=== PATIENT | female | born 1945 | race Caucasian/White ===

== ENCOUNTER → 2022-03-04 11:35 | Outpatient (CLI) | payer MEDICARE, SELFPAY ==
[2022-03-04 13:01] LABS: Add Manual Diff / Slide Review NO; Basophils Absolute Auto 100 /uL (0-100); Eosinophils Absolute Auto 200 /uL (0-450); Eosinophils Percent Auto 3.1 % (2-4); Hematocrit 37.9 % (36-46); Hemoglobin 12.8 g/dL (12.0-16.0); Lymphocytes Absolute Auto 1400 /uL (1100-4500); Mean Corpuscular HGB Conc 33.7 % (30-36); Mean Corpuscular Hemoglobin 30.7 PG (26-34); Monocytes Absolute Auto 500 /uL (0-900); Monocytes Percent Auto 8.5 % (3-14); Neutrophils Absolute Auto 4200 /uL (1500-7000); Neutrophils Percent Auto 65.4 % (50-75); Platelet Count 242 X10^3/uL (150-400); Red Blood Cell Count 4.16 X10^6/uL (4.0-5.2); Red Cell Distribution Width 13.5 % (11.6-14.8); White Blood Cell Count 6.4 X10^3/uL (4.5-11.0)
[2022-03-04 13:12] LABS: Alanine Aminotransferase 33 IU/L (<35); Albumin 4.4 g/dL (3.5-5.0); Albumin Globulin Ratio 1.5 (1.0-2.8); Alkaline Phosphatase 75 U/L (38-126); Aspartate Aminotransferase 35 IU/L (14-36); BUN Creatinine Ratio 29.4 (6-22); Bilirubin Total 0.3 mg/dL (0.2-1.3); Blood Urea Nitrogen 20 mg/dL (7-17); Calcium 9.1 mg/dL (8.4-10.2); Carbon Dioxide 25 mmol/L (22-32); Chloride 105 mmol/L (98-107); Cholesterol 190 mg/dL (140-199); Estimated Glomerular Filt Rate > 60 mL/min (>60); Globulin 2.9 g/dL (1.7-4.1); Glucose 109 mg/dL (80-110); HDL Cholesterol 44 mg/dL (40-60); HEMOLYSIS < 15 (0-50); LDL Cholesterol Calculated 128 mg/dL (<100); Potassium 4.6 mmol/L (3.4-5.1); Sodium 140 mmol/L (137-145); Total Protein 7.3 g/dL (6.3-8.2); Triglycerides 89 mg/dL (35-150)
[2022-03-04 13:29] LABS: T4 Total Thyroxine 7.57 ug/dL (5.5-11.0)
[2022-03-04 13:43] LABS: Thyroid Stimulating Hormone 3.51 uIU/mL (0.47-4.68)
[2022-03-05 05:43] LABS: Triiodothyronine T3 Total 112 ng/dL (71-180)
[2022-03-05 08:04] LABS: Insulin Level Total 10.7 uIU/mL (2.6-24.9)
[2022-03-06 14:11] LABS: Estradiol 11.3 pg/mL (.); Estriol,Serum <0.1 ng/mL (.); Estrone,Serum 95 pg/mL (0-125)
[2022-03-06 19:36] LABS: SARS CoV19 IgA Negative (Negative)
[2022-03-08 16:28] LABS: Percent Free Testosterone 2.38 % (0.50-2.80); Testosterone Free 0.11 ng/dL (0.10-0.85); Testosterone Total 4.6 ng/dL (7.0-40.0)
== END ==
DX: E03.9 Hypothyroidism, unspecified (principal); N95.1 Menopausal and female climacteric states; Z13.9 Encounter for screening, unspecified; N07.1 Hereditary nephropathy, not elsewhere classified with focal and segmental glomerular lesions; E78.2 Mixed hyperlipidemia; R79.89 Other specified abnormal findings of blood chemistry
CPT/HCPCS: 80053; 80061; 82542; 82670; 82677; 82679; 83525; 84144; 84402; 84403; 84436; 84443; 84480; 85025; 86769

== ENCOUNTER 2022-06-24 12:08 | Emergency (ER) | payer MEDICARE, SELFPAY ==
[2022-06-24 12:26] VITALS: BP 124/57; PULSE 61; RESP 17; TEMP 36.6; O2SAT 98; BMI 22.4
[2022-06-24 13:16] VITALS: BP 106/62; PULSE 62; RESP 16; O2SAT 99
--- NOTE | 2022-06-24 13:51 | ED.NECK ---
HPI - Neck Pain/Injury General Chief Complaint: Neck Pain/Injury Stated Complaint: Neck pain shoulder pain and hip pain left & rt Time Seen by Provider: 06/24/22 13:01 Mode of arrival: Ambulatory History of Present Illness HPI Narrative: Patient is held a 76-year-old female who presents with left-sided neck pain for the last 4 days. She says she wanted to surprise her when he came home with some landscaping and water fall feature. She says she did quite a bit a work in the next day woke up sore. Usually she can rest and gets better however this is not getting better it is keeping her awake at night. She says now it is going all way down to her hip. She has no weakness. She did not fall. She has been taking Tylenol and ibuprofen with minimal relief. Related Data Home Medications Medication Instructions Recorded Confirmed brimonidine 0.2 %-timolol 0.5 % drp 06/24/22 eye drops (Combigan) esterified tab 06/24/22 estrogens-methyltestosterone 0.625 mg-1.25 mg tablet Previous Rx's Medication Instructions Recorded cyclobenzaprine 5 mg tablet 5 mg PO TID PRN muscle spasm #10 06/24/22 tabs hydrocodone 5 mg-acetaminophen 325 1 tab PO Q6H PRN pain #10 tabs 06/24/22 mg tablet Review of Systems Review of Systems Narrative: GENERAL: Denies chills,fever HEENT: Denies throat pain RESPIRATORY: Denies dyspnea, cough, wheezing CARDIOVASCULAR: Denies chest pain, palpitations GASTROINTESTINAL: Denies nausea, vomiting MUSCULOSKELETAL: See HPI SKIN: No rash, no laceration, no pruritus NEUROLOGIC: Denies weakness, dizziness, headache, numbness 8 point review of systems is negative except for those stated above and HPI Patient History Social History Smoking Status: Never smoker Smoking Status: Never smoker alcohol intake frequency: holidays/special occasions only Substance Use Type: does not use Exam Initial Vital Signs Initial Vital Signs: Vital Signs Temperature 98 F 06/24/22 12:26 Pulse Rate 61 06/24/22 12:26 Respiratory Rate 17 06/24/22 12:26 Blood Pressure 124/57 L 06/24/22 12:26 Pulse Oximetry 98 09/13/22 12:26 Oxygen Delivery Method 06/24/22 12:26 GENERAL: Pleasant alert 76-year-old female appears younger than stated NECK: No vertebral tenderness no step-off significant muscle spasm on the left side. Tender to palpation CARDIOVASCULAR: peripheral pulses in tact, cap refill <2 sec RESPIRATORY: No respiratory distress, speaks in full sentences without difficulty EXTREMITIES: Normal range of motion, no clubbing or edema. Neurovascularly intact NEUROLOGICAL: Cranial nerves II through XII grossly intact. Normal gait and speech. SKIN: Warm, dry, no petechiae, no rashes or lesions. Course Orders Ordered: Discontinued Medications Ketorolac Tromethamine (Ketorolac 30 Mg/Ml Vial) 30 mg IM NOW ONE Stop: 06/24/22 14:00 Last Admin: 06/24/22 14:09 Dose: 30 mg Documented By: JEETK Vital Signs Vital signs: Vital Signs - 8 hr 06/24/22 12:26 06/24/22 13:16 Temperature 98 F Pulse Rate 61 62 Respiratory Rate 17 16 Blood Pressure 124/57 L 106/62 Pulse Oximetry 98 99 Oxygen Delivery Method Room Air Room Air MDM - Neck Pain/Injury MDM Narrative Medical decision making narrative: Has significant muscle spasm on the left it is reproducible with palpation. No need for imaging at this time. She has not had any fall she is nontender over her vertebrae. Minimal improvement with pain medication here. Will send her home with more Discharge Plan Departure Patient Disposition: Home Clinical Impression: Strain of neck muscle Instructions: Neck Sprain Activity Restrictions/Additional Instructions: *You have been diagnosed with cervical strain *What to do: At this time recommend light stretching heating pad. LIGHT activity no strenuous activity no heavy lifting *Continue to take medications as directed--> SENT TO [facility] [place] Ibuprofen 600 mg every 6 hours if needed for [id number] pain [place] 1 tablet every 6 hours if needed for severe pain Flexeril 5 mg every 8 hours as needed for muscle spasm *Follow up with your primary care provider in 2-3 days or call [phone] *Return to ER if you should have increasing pain, weakness numbness tingling or any new, worsening or concerning symptoms CONTROLLED SUBSTANCE DISCHARGE (Narcotoic/benzodiazepine/Flexeril/Phenergan) 1. You have been prescribed narcotic medications, it does have acetaminophen/Tylenol/paracetamol in it, DO NOT TAKE MORE THAN 4,00mg in 24 hours of Tylenol. TRAMADOL DOES NOT CONTAIN TYLENOL 2. Please understand that we cannot provide further refills of narcotics, benzodiazepines or controlled substances through the ED and her pain management will need to be through your provider. 3. While on these medications you cannot drive or operate heavy machinery. 4. You cannot sign legal documents or perform any duties such as this. 5. As long as you're taking opiate pain medications he should also be taking a stool softener such as Colace, Dulcolax, MiraLAX or prune juice, to help avoid constipation. Prescriptions: New hydrocodone-acetaminophen 5-325 mg tablet 1 tab PO Q6H PRN (Reason: pain) Qty: 10 0RF cyclobenzaprine 5 mg tablet 5 mg PO TID PRN (Reason: muscle spasm) Qty: 10 0RF No Action estrogens-methyltestosterone 0.625-1.25 mg tablet Label Comments: TAKE 1 TABLET BY MOUTH EVERY DAY brimonidine-timolol [Combigan] 0.2-0.5 % drops Referrals: Hanane Luis ARNP [Primary Care Provider] - Visit Report Forms: Patient Portal/API
[2022-06-24] MEDS: KETOROLAC 30 MG/ML VIAL IM (14:09)
== END 2022-06-24 14:51 | disposition home or self-care (01) ==
PROVIDERS: Emergency Provider Emergency Medicine
DX: S16.1XXA Strain of muscle, fascia and tendon at neck level, initial encounter (principal)
CPT/HCPCS: 96372; 99283; J1885

== ENCOUNTER → 2022-10-21 09:59 | Outpatient (CLI) | payer MEDICARE, SELFPAY ==
--- NOTE | 2022-10-21 10:00 | DI.RAD.S_ITS ---
PROCEDURE: XR FOOT RT MIN 3V INDICATIONS: Right foot injury TECHNIQUE: 3 views of the foot were acquired. COMPARISON: None. FINDINGS: Mildly displaced and distracted fracture through the right 5th metatarsal base. No additional fracture. 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 IMPRESSION: Mildly displaced and distracted right 5th metatarsal base fracture. Dictated by: Thad Mike M.D. on 10/21/2022 at 11:12 Approved by: Thad Mike M.D. on 10/21/2022 at 11:13
== END ==
PROVIDERS: Referring Provider Registered Nurse; Visit Provider Registered Nurse
DX: S92.351A Displaced fracture of fifth metatarsal bone, right foot, initial encounter for closed fracture (principal); M19.071 Primary osteoarthritis, right ankle and foot; M20.11 Hallux valgus (acquired), right foot; M79.671 Pain in right foot
CPT/HCPCS: 73630

== ENCOUNTER 2023-05-18 10:13 | Observation (INO) | payer MEDICARE, SELFPAY ==
[2023-05-18] VITALS (19 sets, daily range): BP systolic 106–182; BP diastolic 52–74; PULSE 48–66; RESP 12–22; TEMP 36.3–36.8; O2SAT 86–100; BMI 23.3
--- NOTE | 2023-05-18 | DI.MRI.S_ITS ---
PROCEDURE: MR HEAD/BRAIN WO CON INDICATIONS: possible CVA TECHNIQUE: Non-contrast axial T1 spin echo, axial T2 fast spin echo, sagittal and axial FLAIR, coronal T2 fast spin echo, axial gradient echo, axial diffusion and ADC through the brain. COMPARISON: [facility], CT, CT ANGIO HEAD AND NECK, 05/18/2023, 13:20. FINDINGS: Image quality: Excellent. CSF spaces: Ventricles appear symmetric in size and shape. Basal cisterns are patent. No extra-axial fluid collections. Brain: No intracranial bleeds or mass effects. There is cerebral volume loss for age. There are periventricular and deep white matter chronic small vessel ischemic changes. Brainstem appears normal. Diffusion-weighted images show no acute ischemic insults. No chronic ischemic insults. Normal intravascular flow voids are present. Skull and face: Calvarial bone marrow is normal in signal. Bilateral lens replacements. Otherwise, the orbits are unremarkable. Sinuses: Small right maxillary sinus mucous retention cyst. Sinuses and mastoids are otherwise clear. IMPRESSION: 1. No acute or subacute infarct. No acute intracranial hemorrhage. 2. Age-related volume loss and chronic microvascular ischemic change. Dictated by: Stan Gonsales M.D. on 05/18/2023 at 16:13 Approved by: Stan Gonsales M.D. on 05/18/2023 at 16:16
--- NOTE | 2023-05-18 10:29 | DI.RAD.S_ITS ---
PROCEDURE: XR CHEST 1V INDICATIONS: chest pain/syncope TECHNIQUE: One view of the chest was acquired. COMPARISON: None. FINDINGS: Surgical changes and devices: None. Lungs and pleura: Lungs are clear. No pleural effusions or pneumothorax. Mediastinum: Mediastinal contours appear normal. Heart size is normal. Bones and chest wall: No suspicious bony lesions. Overlying soft tissues appear unremarkable. IMPRESSION: No acute cardiopulmonary abnormalities or focal airspace disease. Dictated by: Yves Brewer M.D. on 05/18/2023 at 11:13 Approved by: Yves Brewer M.D. on 05/18/2023 at 11:13
[2023-05-18 10:35] LABS: Add Manual Diff / Slide Review NO; Basophils Absolute Auto 0 /uL (0-100); Basophils Percent Auto 0.4 % (0-2); Eosinophils Absolute Auto 200 /uL (0-450); Eosinophils Percent Auto 2.5 % (2-4); Hematocrit 39.8 % (36-46); Hemoglobin 13.4 g/dL (12.0-16.0); Lymphocytes Absolute Auto 1000 /uL (1100-4500); Lymphocytes Percent Auto 10.1 % (25-40); Mean Corpuscular HGB Conc 33.6 % (30-36); Mean Corpuscular Hemoglobin 31.1 PG (26-34); Mean Corpuscular Volume 92.5 fL (80-100); Monocytes Absolute Auto 600 /uL (0-900); Monocytes Percent Auto 6.8 % (3-14); Neutrophils Absolute Auto 7600 /uL (1500-7000); Neutrophils Percent Auto 80.2 % (50-75); Platelet Count 231 X10^3/uL (150-400); Red Cell Distribution Width 13.5 % (11.6-14.8); White Blood Cell Count 9.5 X10^3/uL (4.5-11.0)
[2023-05-18 10:41] LABS: Prothrombin Time 11.1 SECONDS (10.1-12.7)
[2023-05-18 10:44] LABS: PTT Partial Thromboplastin Tim 28 SECONDS (26-36)
[2023-05-18 10:45] LABS: Alanine Aminotransferase 30 IU/L (<35); Albumin 4.2 g/dL (3.5-5.0); Albumin Globulin Ratio 1.4 (1.0-2.8); Alkaline Phosphatase 71 U/L (38-126); Aspartate Aminotransferase 36 IU/L (14-36); BUN Creatinine Ratio 34.5 (6-22); Bilirubin Total 0.4 mg/dL (0.2-1.3); Blood Urea Nitrogen 20 mg/dL (7-17); Calcium 9.3 mg/dL (8.4-10.2); Carbon Dioxide 28 mmol/L (22-32); Chloride 105 mmol/L (98-107); Creatine Kinase 64 U/L (30-135); Estimated Glomerular Filt Rate > 60 mL/min (>60); Globulin 2.9 g/dL (1.7-4.1); Glucose 122 mg/dL (80-110); HEMOLYSIS < 15 (0-50); Lipase 63 U/L (23-300); Potassium 4.4 mmol/L (3.4-5.1); Sodium 138 mmol/L (137-145); Total Protein 7.1 g/dL (6.3-8.2)
[2023-05-18 10:57] LABS: NT-proBNP (BNP-Adult 18+) 128 pg/mL (<450); Troponin I < 0.012 ng/mL (0.01-0.034)
[2023-05-18] MEDS: SODIUM CHLORIDE 0.9% 1,000 ML 1000 ML IV (11:11)
--- NOTE | 2023-05-18 12:04 | ED_ITS ---
HPI - Syncope General Chief Complaint: Syncope Stated Complaint: Syncope Chest Pressure Time Seen by Provider: 05/18/23 10:29 Source: patient and EMS Mode of arrival: EMS Limitations: no limitations History of Present Illness HPI narrative: This is a 77-year-old female with history of glaucoma, chronic leg cramps and on estradiol daily. Patient states last night she noticed some left upper and lower extremity numbness and tingling she states this morning she woke up the room was spinning like the whole stealing was moving it is not quite as intense now but is still present any time she moves at all. She also noticed that she would a little change to her left eye vision like blocks and a sort of crescent shape that were izaguirre that has since resolved. She denies headache. She denies any active vision changes currently. She has little bit of chest pressure, no shortness of breath. Still feels tingling in her left upper extremity noted her left toes felt numb and tingling like she was stepping on something even though she was not. She noted onset around 0 last night. She is had some nausea but no vomiting today. No issues with bowel movements or urination. She does not appreciate any weakness. She states that she fell in the kitchen and sort of grade out for several seconds. She states it also happened a 2nd time again when she was walking to their sports room. She feels a little lightheaded when she sits up. She has medications including estradiol and tablet form for hormone replacement, eyedrops for glaucoma, quinidine PRN for leg cramps and nausea medication. She is had prior hysterectomy, hernia and eye surgery as well as 1 tonsil removed. No known drug allergies. No tobacco, occasional alcohol none recently, she tried THC a couple days ago but otherwise does not use regularly. No other illicit. Related Data Home Medications Medication Instructions Recorded Confirmed brimonidine 0.2 %-timolol 0.5 % 1 drp EYE-BOTH BID 06/24/22 05/18/23 eye drops (Combigan) esterified 1 tab PO DAILY 06/24/22 05/18/23 estrogens-methyltestosterone 0.625 mg-1.25 mg tablet quinine sulfate 324 mg capsule 324 mg PO ONCE PM PRN cramps 05/18/23 05/18/23 Previous Rx's Medication Instructions Recorded cyclobenzaprine 5 mg tablet 5 mg PO TID PRN muscle spasm #10 06/24/22 tabs hydrocodone 5 mg-acetaminophen 325 1 tab PO Q6H PRN pain #10 tabs 06/24/22 mg tablet Allergies Allergy/AdvReac Type Severity Reaction Status Date / Time No Known Drug Allergies Allergy Verified 05/18/23 10:39 Review of Systems Review of Systems ROS Unobtainable: All systems reviewed & are unremarkable except as noted in HPI and below Patient History Medical History (Updated 05/18/23 @ 18:19 by Jeff Mejia DO) Glaucoma Surgical History (Updated 05/18/23 @ 18:19 by Jeff Mejia DO) H/O: hysterectomy Social History household members: spouse Smoking Status: Never smoker alcohol intake: current Smoking Status: Never smoker alcohol intake frequency: holidays/special occasions only Substance Use Type: does not use Exam Narrative Exam Narrative: GEN: well nourished, well appearing female, alert and oriented x 3, patient appears to be in mild distress. HEENT: Atraumatic, pupils are equal round reactive to light, extraocular movements are intact, nares are clear, TMs are clear with no fluid, there is no conjunctival pallor. Throat is clear without any exudates, erythema, tonsillar enlargement or uvular deviation, no facial droop HEART: Regular rate and rhythm without murmur, clicks, rubs. pulses are equal in upper and lower extremities LUNGS:Lungs clear to auscultation, no wheezes, rales, crackles, chest moves symmetrically ABD:bowel sounds normal, soft, non-tender, no guarding, rebound, rigidity, no masses noted, no hepatosplenomegaly :No CVA tenderness MSCL: Non-tender, no muscle atrophy, muscles strength 5/5 upper and lower extremities, full range of motion, gait slightly unsteady but can ambulate unasssited. NEURO:CN 2-12 intact, sensation normal, Finger nose finger test normal, heel bond test normal, romberg normal SKIN: Initial Vital Signs Initial Vital Signs: Vital Signs Temperature 97.9 F 05/18/23 10:15 Pulse Rate 60 05/18/23 10:15 Respiratory Rate 16 05/18/23 10:15 Blood Pressure 132/63 05/18/23 10:15 Pulse Oximetry 98 05/18/23 10:15 Oxygen Delivery Method Room Air 05/18/23 10:15 Course Orders Ordered: ED Orders 05/18/23 10:20 Complete Blood Count AUTO DIFF Stat Comprehensive Metabolic Panel Stat Lipase Stat NT-proBNP (BNP-Adult 18+) Stat PTT Partial Thromboplastin Crow Stat Prothrombin Time INR Stat Troponin & CK Cardiac Panel Stat 05/18/23 10:23 EKG-12 Lead Routine 05/18/23 10:29 XR chest 1V Stat EKG-12 Lead Stat 05/18/23 12:20 EKG-12 Lead Stat 05/18/23 12:23 MAG [Magnesium] Stat Trop I [Troponin I] Stat 05/18/23 12:57 CT angio head and neck Stat CT head/brain wo con Stat 05/18/23 15:54 Consult to Occupational Therapy Evaluate & Treat Consult to Physical Therapy Evaluate & Treat 05/19/23 05:00 Basic Metabolic Panel DAILY Complete Blood Count AUTO DIFF DAILY Hemoglobin A1C% w Est Avg Glu Routine Lipid Panel Routine Magnesium DAILY TSH w/ Reflex to FT4 Routine 05/20/23 05:00 Basic Metabolic Panel DAILY Complete Blood Count AUTO DIFF DAILY Magnesium DAILY 05/21/23 05:00 Basic Metabolic Panel DAILY Complete Blood Count AUTO DIFF DAILY Magnesium DAILY Acetaminophen (Acetaminophen 325 Mg Tablet) 650 mg PO Q6H PRN PRN Reason: Fever/Mild Pain (1-3) Aspirin (Aspirin Ec 81 Mg Tablet) 81 mg PO DAILY [facility] Atorvastatin Calcium (Atorvastatin 20 Mg Tablet) 40 mg PO BEDTIME [facility] Enoxaparin Sodium (Enoxaparin 40 Mg/0.4 Ml Syringe) 40 mg SUBCUT DAILY [facility] Lorazepam (Lorazepam 2 Mg/Ml Inj) 0.5 mg IV Q6HR PRN PRN Reason: vertigo Meclizine HCl (Meclizine Hcl 12.5 Mg Tablet) 25 mg PO Q6HR ANTONIO Naloxone HCl (Naloxone 0.4 Mg/Ml Vial) 0.2 mg IV Q2MIN PRN PRN Reason: Opiate Reversal Ondansetron HCl (Ondansetron 4 Mg/2 Ml Inj) 4 mg IV Q8HR PRN PRN Reason: Nausea And Vomiting Discontinued Medications Aspirin (Aspirin 81 Mg Chew Tab) 324 mg PO NOW ONE Stop: 05/18/23 10:30 Last Admin: 05/18/23 10:39 Dose: Not Given Documented By: AMV Sodium Chloride (Normal Saline 0.9%) 1,000 mls @ 1,000 mls/hr IV BOLUS ONE Stop: 05/18/23 11:28 Last Infusion: 05/18/23 12:29 Dose: 0 mls/hr Documented By: Admin: 05/18/23 11:11 Dose: 1,000 mls/hr Documented By: DAVID Lorazepam (Lorazepam 2 Mg/Ml Inj) 0.5 mg IV NOW ONE Stop: 05/18/23 14:46 Last Admin: 05/18/23 15:03 Dose: Not Given Documented By: DAVID Lorazepam (Lorazepam 2 Mg/Ml Inj) 0.5 mg IV NOW ONE Stop: 05/18/23 15:55 Last Admin: 05/18/23 17:27 Dose: Not Given Documented By: DEBBY Meclizine HCl (Meclizine Hcl 12.5 Mg Tablet) 50 mg PO NOW ONE Stop: 05/18/23 13:21 Last Admin: 05/18/23 13:35 Dose: 50 mg Documented By: [facility] Vital Signs Vital signs: Vital Signs - 8 hr 05/18/23 11:30 05/18/23 11:30 05/18/23 11:49 Pulse Rate 51 L 52 L Pulse Rate [Orthostatic Lying] Pulse Rate [Orthostatic Sitting] Pulse Rate [Orthostatic Standing] Respiratory Rate 15 16 Blood Pressure 110/59 L Blood Pressure [Orthostatic Lying] Blood Pressure [Orthostatic Sitting] Blood Pressure [Orthostatic Standing] Pulse Oximetry 98 97 05/18/23 11:49 05/18/23 12:00 05/18/23 12:00 Pulse Rate 48 L Pulse Rate [Orthostatic Lying] Pulse Rate [Orthostatic Sitting] Pulse Rate [Orthostatic Standing] Respiratory Rate 16 Blood Pressure 138/60 117/56 L Blood Pressure [Orthostatic Lying] Blood Pressure [Orthostatic Sitting] Blood Pressure [Orthostatic Standing] Pulse Oximetry 99 05/18/23 12:24 05/18/23 12:24 05/18/23 12:48 Pulse Rate 52 L Pulse Rate [Orthostatic Lying] 51 L Pulse Rate [Orthostatic Sitting] 56 L Pulse Rate [Orthostatic Standing] 53 L Respiratory Rate 16 Blood Pressure 127/59 L Blood Pressure [Orthostatic Lying] 127/59 L Blood Pressure [Orthostatic Sitting] 137/62 Blood Pressure [Orthostatic Standing] 139/60 Pulse Oximetry 98 05/18/23 12:30 05/18/23 12:44 05/18/23 12:44 Pulse Rate 51 L 55 L Pulse Rate [Orthostatic Lying] Pulse Rate [Orthostatic Sitting] Pulse Rate [Orthostatic Standing] Respiratory Rate 15 12 Blood Pressure 137/62 Blood Pressure [Orthostatic Lying] Blood Pressure [Orthostatic Sitting] Blood Pressure [Orthostatic Standing] Pulse Oximetry 98 98 05/18/23 12:45 05/18/23 12:45 05/18/23 13:05 Pulse Rate 53 L Pulse Rate [Orthostatic Lying] Pulse Rate [Orthostatic Sitting] Pulse Rate [Orthostatic Standing] Respiratory Rate Blood Pressure 139/60 Blood Pressure [Orthostatic Lying] Blood Pressure [Orthostatic Sitting] Blood Pressure [Orthostatic Standing] Pulse Oximetry 98 86 L 05/18/23 13:06 05/18/23 13:06 05/18/23 13:30 Pulse Rate 51 L 52 L Pulse Rate [Orthostatic Lying] Pulse Rate [Orthostatic Sitting] Pulse Rate [Orthostatic Standing] Respiratory Rate 15 Blood Pressure 139/65 Blood Pressure [Orthostatic Lying] Blood Pressure [Orthostatic Sitting] Blood Pressure [Orthostatic Standing] Pulse Oximetry 97 98 05/18/23 14:00 05/18/23 14:26 05/18/23 14:26 Pulse Rate 52 L 50 L Pulse Rate [Orthostatic Lying] Pulse Rate [Orthostatic Sitting] Pulse Rate [Orthostatic Standing] Respiratory Rate Blood Pressure 149/66 H Blood Pressure [Orthostatic Lying] Blood Pressure [Orthostatic Sitting] Blood Pressure [Orthostatic Standing] Pulse Oximetry 98 98 05/18/23 14:26 05/18/23 14:30 Pulse Rate 51 L Pulse Rate [Orthostatic Lying] Pulse Rate [Orthostatic Sitting] Pulse Rate [Orthostatic Standing] Respiratory Rate Blood Pressure 149/66 H Blood Pressure [Orthostatic Lying] Blood Pressure [Orthostatic Sitting] Blood Pressure [Orthostatic Standing] Pulse Oximetry 99 MDM - Syncope Lab Data 05/18/23 10:20 05/18/23 10:20 Labs: Lab Results 05/18/23 05/18/23 05/18/23 Range/Units 10:20 10:20 10:20 WBC 9.5 (4.5-11.0) X10^3/uL RBC 4.30 (4.0-5.2) X10^6/uL Hgb 13.4 (12.0-16.0) g/dL Hct 39.8 (36-46) % MCV 92.5 (80-100) fL MCH 31.1 (26-34) PG MCHC 33.6 (30-36) % RDW 13.5 (11.6-14.8) % Plt Count 231 (150-400) X10^3/uL Neut % (Auto) 80.2 H (50-75) % Lymph % (Auto) 10.1 L (25-40) % [place] % (Auto) 6.8 (3-14) % Eos % (Auto) 2.5 (2-4) % Baso % (Auto) 0.4 (0-2) % Neut # (Auto) 7600 H (6029-3862) /uL Lymph # (Auto) 1000 L (2998-7220) /uL [place] # (Auto) 600 (0-900) /uL Eos # (Auto) 200 (0-450) /uL Baso # (Auto) 0 (0-100) /uL PT 11.1 (10.1-12.7) SECONDS INR 1.0 (0.9-1.3) APTT 28 (26-36) SECONDS Sodium 138 (137-145) mmol/L Potassium 4.4 (3.4-5.1) mmol/L Chloride 105 (98-107) mmol/L Carbon Dioxide 28 (22-32) mmol/L BUN 20 H (7-17) mg/dL Creatinine 0.58 (0.52-1.04) mg/dL Estimated GFR > 60 (>60) mL/min BUN/Creatinine Ratio 34.5 H (6-22) Glucose 122 H (80-110) mg/dL Calcium 9.3 (8.4-10.2) mg/dL Magnesium (1.6-2.3) mg/dL Total Bilirubin 0.4 (0.2-1.3) mg/dL AST 36 (14-36) IU/L ALT 30 (<35) IU/L Alkaline Phosphatase 71 (38-126) U/L Total Creatine Kinase 64 (30-135) U/L Troponin I < 0.012 (0.01-0.034) ng/mL NT-Pro-B Natriuret Pep 128 (<450) pg/mL Total Protein 7.1 (6.3-8.2) g/dL Albumin 4.2 (3.5-5.0) g/dL Globulin 2.9 (1.7-4.1) g/dL Albumin/Globulin Ratio 1.4 (1.0-2.8) Lipase 63 (23-300) U/L 05/18/23 Range/Units 12:23 WBC (4.5-11.0) X10^3/uL RBC (4.0-5.2) X10^6/uL Hgb (12.0-16.0) g/dL Hct (36-46) % MCV (80-100) fL MCH (26-34) PG MCHC (30-36) % RDW (11.6-14.8) % Plt Count (150-400) X10^3/uL Neut % (Auto) (50-75) % Lymph % (Auto) (25-40) % [place] % (Auto) (3-14) % Eos % (Auto) (2-4) % Baso % (Auto) (0-2) % Neut # (Auto) (7397-4565) /uL Lymph # (Auto) (0239-2440) /uL [place] # (Auto) (0-900) /uL Eos # (Auto) (0-450) /uL Baso # (Auto) (0-100) /uL PT (10.1-12.7) SECONDS INR (0.9-1.3) APTT (26-36) SECONDS Sodium (137-145) mmol/L Potassium (3.4-5.1) mmol/L Chloride (98-107) mmol/L Carbon Dioxide (22-32) mmol/L BUN (7-17) mg/dL Creatinine (0.52-1.04) mg/dL Estimated GFR (>60) mL/min BUN/Creatinine Ratio (6-22) Glucose (80-110) mg/dL Calcium (8.4-10.2) mg/dL Magnesium 2.1 (1.6-2.3) mg/dL Total Bilirubin (0.2-1.3) mg/dL AST (14-36) IU/L ALT (<35) IU/L Alkaline Phosphatase (38-126) U/L Total Creatine Kinase (30-135) U/L Troponin I < 0.012 (0.01-0.034) ng/mL NT-Pro-B Natriuret Pep (<450) pg/mL Total Protein (6.3-8.2) g/dL Albumin (3.5-5.0) g/dL Globulin (1.7-4.1) g/dL Albumin/Globulin Ratio (1.0-2.8) Lipase (23-300) U/L Point of Care Testing Glucose POC 118 Urine Dip Bedside Urine Glucose Negative Bedside Urine Bilirubin - Negative Bedside Urine Ketone - Negative Urine Specific [place] 1.015 Bedside Urine Occult Blood +/- Bedside Urine pH 6.0 Bedside Urine Protein - Negative Bedside Urine Urobilinogen - Negative Bedside Urine Nitrite - Negative Bedside Urine Leukocytes - Negative Esterase Imaging Data Chest x-ray: Radiologist's Impression: [address] [address] XRay Report Signed Patient: Tor Samuel V MR#: [id number] : 1945 Acct:[id number] Age/Sex: 77 / F Date of Service: 05/18/23 Loc: ED Accession Number: [id number] ?? Procedure: XR chest 1V Ordering Provider: Shannon Ventura D.O. PROCEDURE:? XR CHEST 1V ? INDICATIONS:? chest pain/syncope ? TECHNIQUE:? One view of the chest was acquired.? ? COMPARISON:? None. ? FINDINGS:? ? Surgical changes and devices:? None.? ? Lungs and pleura:? Lungs are clear.? No pleural effusions or pneumothorax.? ? Mediastinum:? Mediastinal contours appear normal.? Heart size is normal.? ? Bones and chest wall:? No suspicious bony lesions.? Overlying soft tissues appear unremarkable.? ? IMPRESSION:? No acute cardiopulmonary abnormalities or focal airspace disease. ? Dictated by: Yves Brewer M.D. on 05/18/2023 at 11:13 ? ? Approved by: Yves Brewer M.D. on 05/18/2023 at 11:13?? ECG Data Attestation: I personally reviewed and interpreted this ECG as follows: Interpretation: Sinus bradycardia rate of 55, IN 152 QRS is 76 and QTC 390. No acute ST elevation depression noted. MDM Narrative Medical decision making narrative: This is a 77-year-old female who presents with complaint of left-sided leg numbness and tingling starting yesterday which she also notes in her left upper extremity today and vertigo symptoms upon awakening as well as a little bit of visual change that sounds like a hemianopsia that has resolved. Vertigo as persistent left upper extremity tingling is also present. Patient has been able to ambulate but is off balance. Initial head CT and CT angio do not show acute changes labs do not show a clear cause symptoms. Discussed with patient your own many of her symptoms consistent with vertigo but concerned with her other neurologic changes for possible stroke. Discussed with hospitalist, Dr. Asencio who accepts for observation and MR. Patient was given aspirin 324 mg here in the department, meclizine as well. She was given a dose of lorazepam prior to MR secondary to claustrophobia. Discharge Plan Departure Patient Disposition: Admitted as Observation Clinical Impression: Vertigo, Paresthesia Admit Date/Time: 05/18/23 14:57 Admit Provider: Jeff Mejia
[2023-05-18 12:41] LABS: Magnesium 2.1 mg/dL (1.6-2.3)
[2023-05-18 12:53] LABS: Troponin I < 0.012 ng/mL (0.01-0.034)
--- NOTE | 2023-05-18 12:57 | DI.CT.S_ITS ---
PROCEDURE: CT HEAD/BRAIN WO CON INDICATIONS: vertigo w/ LE numbness TECHNIQUE: Noncontrast 4.5 mm thick angled axial sections acquired from the foramen magnum to the vertex, with coronal and sagittal reformats. For radiation dose reduction, the following was used: automated exposure control, adjustment of mA and/or kV according to patient size. COMPARISON: None. FINDINGS: Image quality: Excellent. CSF spaces: Basal cisterns are patent. No extra-axial fluid collections. The ventricles are symmetric in size and shape. Brain: No intracranial bleeds or masses. There is cerebral volume loss for age, with resultant ventricular and sulcal prominence. There are periventricular and deep white matter chronic small vessel ischemic changes. There is intracranial internal carotid artery atherosclerosis. Skull and face: Calvarium and visualized facial bones appear intact, without suspicious lesions. Sinuses: Visualized sinuses and mastoids are clear. IMPRESSION: 1. CT head without acute intracranial abnormalities or acute calvarial fractures. 2. Age-related senescent changes and sequela of chronic small vessel ischemic disease. Dictated by: Yves Brewer M.D. on 05/18/2023 at 14:24 Approved by: Yves Brewer M.D. on 05/18/2023 at 14:26
--- NOTE | 2023-05-18 12:57 | DI.CT.S_ITS ---
PROCEDURE: CT ANGIO HEAD AND NECK INDICATIONS: vertigo w/ LE ext tingly/numbness TECHNIQUE: After the administration of intravenous contrast, 1 mm thick sections acquired from the aortic arch through the [place] of [place]. 3-dimensional enbzwlu-lkcnoupvh-vuunpezlmu (MIP) and/or volume rendering reformats were acquired of the central intracranial vasculature and neck separately. For radiation dose reduction, the following was used: automated exposure control, adjustment of mA and/or kV according to patient size. COMPARISON: [facility], MR, MR ANGIO HEAD WITHOUT CONTRAST, 05/21/2022, 16:17. [facility], CT, CT HEAD/BRAIN WO CON, 05/18/2023, 13:20. FINDINGS: Image quality: Diagnostic. BRAIN: CSF spaces: Ventricles are normal in size and shape. Basal cisterns are patent. No extra-axial fluid collections. Brain: No midline shift. No intracranial masses. No abnormal enhancement identified. Holley-white matter interface appears intact. Skull and face: Calvarium and facial bones appear intact, without suspicious lesions. Orbits appear normal. Sinuses: Sinuses and mastoids are clear. HEAD CT ANGIOGRAPHY: Anterior circulation: Redemonstration of diminutive right A1 segment of the right anterior cerebral artery. Intracranial internal carotid arteries are normal in size and flow. The A2 segment of the right GUILLERMINA fills from the patent left anterior communicating artery The flow within the middle cerebral arteries is normal and symmetric. The anterior communicating artery is seen. No aneurysms are seen. Posterior circulation: Visualized portions of the vertebral arteries demonstrate normal caliber, and join to form a normal appearing basilar artery. Flow within the posterior cerebral arteries is normal and symmetric. No aneurysms are seen. NECK CT ANGIOGRAPHY: Carotid system: The great vessels demonstrate a conventional anatomy as they arise from the aortic arch. The origins of the common carotid arteries appear patent. The common carotid arteries demonstrate normal caliber and courses. The bifurcation regions are both widely patent. The internal carotid arteries demonstrate normal calibers and courses. Posterior circulation: The origins of the vertebral arteries both appear widely patent. The more superior extracranial portions of both vertebral arteries also demonstrate normal courses and calibers. They join to form a normal appearing basilar artery. Soft tissues: Visualized neck soft tissues demonstrate no suspicious abnormalities. Bones: No suspicious bony lesions. Visualized cervical spine appears normally aligned. No acute compression fracture. Multilevel cervical spondylosis. IMPRESSION: Negative CT angiogram of the intracranial and neck arterial vasculature. Any quantitative measurements of stenosis were performed using NASCET criteria. Dictated by: Yves Brewer M.D. on 05/18/2023 at 14:15 Approved by: Yves Brewer M.D. on 05/18/2023 at 14:22
[2023-05-18] MEDS: MECLIZINE HCL 12.5 MG TABLET 50 MG PO (13:35)
[2023-05-18] MEDS: LORazepam 2 MG/ML INJ (14:58)
--- NOTE | 2023-05-18 15:01 | PC.NURSE ---
premedicated for MRI with ativan 0.5 mg IV dose checked by 2 rns and verified with MD order. Patient to MRI via wheelchair and then will go to ACU room 221 report to be called to acu rn
--- NOTE | 2023-05-18 17:29 | PC.NURSE ---
Patient is alert and oriented x3. She states that once in a while, she will have a twinge of pain to l.chest and she gets vertigo. Per foam rubber curer, patient was not super steady on her feet, she was reaching for the bed and things when she was ambulating. Will use walker from now on. Patient eating dinner and denies discomfort. Tele is Sinus Naldo in the 60s. Patient is resting comfortably.
--- NOTE | 2023-05-18 18:18 | P.HP_ITS ---
History of Present Illness History of Present Illness Date Patient Seen: 05/18/23 Time Patient Seen: 18:19 Chief complaint: Syncope Chest Pressure Narrative: This is a 77 year old female with PMH of glaucoma who presented with abrupt onset of dizziness this morning. Patient over the last couple of days has been having paresthesias, with numbness of her left hand and feet. She states that she gets some tingling in her fingers, and has been feeling things on the floor of her home when nothing is there (feels like she has stepped on something like cat food). Her symptoms are worse with movement and sitting upright. She was needing to hold on to this to get around. She also noted some sharp chest pain and left shoulder pain this morning and had an episode of near syncope then brief syncope when moving. She denied any loss of bowel or bladder, no seizure activity. In the emergency room, initial evaluation was unremarkable including CT and CTA of her head. She was not orthostatic and the remainder of her vitals were unremarkable. She continued to have dizziness. MRI was performed after admission was discussed with the ER and does not show an acute infarct. [facility] Medical History (Updated 05/18/23 @ 18:19 by Jeff Mejia DO) Glaucoma Surgical History (Updated 05/18/23 @ 18:19 by Jeff Mejia DO) H/O: hysterectomy Social History household members: spouse Smoking Status: Never smoker alcohol intake: current Meds Home Medications and Allergies Home Medications Medication Instructions Recorded Confirmed Type brimonidine 0.2 %-timolol 0.5 % 1 drp EYE-BOTH BID 06/24/22 05/18/23 History eye drops (Combigan) cyclobenzaprine 5 mg tablet 5 mg PO TID PRN muscle spasm #10 06/24/22 10/21/22 Rx tabs esterified 1 tab PO DAILY 06/24/22 05/18/23 History estrogens-methyltestosterone 0.625 mg-1.25 mg tablet hydrocodone 5 mg-acetaminophen 325 1 tab PO Q6H PRN pain #10 tabs 06/24/22 10/21/22 Rx mg tablet quinine sulfate 324 mg capsule 324 mg PO ONCE PM PRN cramps 05/18/23 05/18/23 History Allergies Allergy/AdvReac Type Severity Reaction Status Date / Time No Known Drug Allergies Allergy Verified 05/18/23 10:39 Review of Systems Review of Systems Narrative: All other systems reviewed with the patient and are negative unless otherwise stated. Exam Vital Signs (past 8 hours): - 05/18/23 11:07 05/18/23 11:08 05/18/23 11:08 Temperature Pulse Rate 55 L 53 L Pulse Rate [Orthostatic Lying] Pulse Rate [Orthostatic Sitting] Pulse Rate [Orthostatic Standing] Respiratory Rate 22 19 Blood Pressure 106/52 L Blood Pressure [Orthostatic Lying] Blood Pressure [Orthostatic Sitting] Blood Pressure [Orthostatic Standing] Pulse Oximetry 97 97 Oxygen Delivery Method 05/18/23 11:30 05/18/23 11:30 05/18/23 11:49 Temperature Pulse Rate 51 L 52 L Pulse Rate [Orthostatic Lying] Pulse Rate [Orthostatic Sitting] Pulse Rate [Orthostatic Standing] Respiratory Rate 15 16 Blood Pressure 110/59 L Blood Pressure [Orthostatic Lying] Blood Pressure [Orthostatic Sitting] Blood Pressure [Orthostatic Standing] Pulse Oximetry 98 97 Oxygen Delivery Method 05/18/23 11:49 05/18/23 12:00 05/18/23 12:00 Temperature Pulse Rate 48 L Pulse Rate [Orthostatic Lying] Pulse Rate [Orthostatic Sitting] Pulse Rate [Orthostatic Standing] Respiratory Rate 16 Blood Pressure 138/60 117/56 L Blood Pressure [Orthostatic Lying] Blood Pressure [Orthostatic Sitting] Blood Pressure [Orthostatic Standing] Pulse Oximetry 99 Oxygen Delivery Method 05/18/23 12:24 05/18/23 12:24 05/18/23 12:48 Temperature Pulse Rate 52 L Pulse Rate [Orthostatic Lying] 51 L Pulse Rate [Orthostatic Sitting] 56 L Pulse Rate [Orthostatic Standing] 53 L Respiratory Rate 16 Blood Pressure 127/59 L Blood Pressure [Orthostatic Lying] 127/59 L Blood Pressure [Orthostatic Sitting] 137/62 Blood Pressure [Orthostatic Standing] 139/60 Pulse Oximetry 98 Oxygen Delivery Method 05/18/23 12:30 05/18/23 12:44 05/18/23 12:44 Temperature Pulse Rate 51 L 55 L Pulse Rate [Orthostatic Lying] Pulse Rate [Orthostatic Sitting] Pulse Rate [Orthostatic Standing] Respiratory Rate 15 12 Blood Pressure 137/62 Blood Pressure [Orthostatic Lying] Blood Pressure [Orthostatic Sitting] Blood Pressure [Orthostatic Standing] Pulse Oximetry 98 98 Oxygen Delivery Method 05/18/23 12:45 05/18/23 12:45 05/18/23 13:05 Temperature Pulse Rate 53 L Pulse Rate [Orthostatic Lying] Pulse Rate [Orthostatic Sitting] Pulse Rate [Orthostatic Standing] Respiratory Rate Blood Pressure 139/60 Blood Pressure [Orthostatic Lying] Blood Pressure [Orthostatic Sitting] Blood Pressure [Orthostatic Standing] Pulse Oximetry 98 86 L Oxygen Delivery Method 05/18/23 13:06 05/18/23 13:06 05/18/23 13:30 Temperature Pulse Rate 51 L 52 L Pulse Rate [Orthostatic Lying] Pulse Rate [Orthostatic Sitting] Pulse Rate [Orthostatic Standing] Respiratory Rate 15 Blood Pressure 139/65 Blood Pressure [Orthostatic Lying] Blood Pressure [Orthostatic Sitting] Blood Pressure [Orthostatic Standing] Pulse Oximetry 97 98 Oxygen Delivery Method 05/18/23 14:00 05/18/23 14:26 05/18/23 14:26 Temperature Pulse Rate 52 L 50 L Pulse Rate [Orthostatic Lying] Pulse Rate [Orthostatic Sitting] Pulse Rate [Orthostatic Standing] Respiratory Rate Blood Pressure 149/66 H Blood Pressure [Orthostatic Lying] Blood Pressure [Orthostatic Sitting] Blood Pressure [Orthostatic Standing] Pulse Oximetry 98 98 Oxygen Delivery Method 05/18/23 14:26 05/18/23 14:30 05/18/23 16:09 Temperature Pulse Rate 51 L Pulse Rate [Orthostatic Lying] Pulse Rate [Orthostatic Sitting] Pulse Rate [Orthostatic Standing] Respiratory Rate Blood Pressure 149/66 H Blood Pressure [Orthostatic Lying] Blood Pressure [Orthostatic Sitting] Blood Pressure [Orthostatic Standing] Pulse Oximetry 99 Oxygen Delivery Method Room Air 05/18/23 15:54 Temperature 97.3 F L Pulse Rate 55 L Pulse Rate [Orthostatic Lying] Pulse Rate [Orthostatic Sitting] Pulse Rate [Orthostatic Standing] Respiratory Rate 16 Blood Pressure 182/74 H Blood Pressure [Orthostatic Lying] Blood Pressure [Orthostatic Sitting] Blood Pressure [Orthostatic Standing] Pulse Oximetry 100 Oxygen Delivery Method Oxygen Delivery Method Room Air Narrative Exam Narrative: General:? Patient is well developed and well nourished, in no distress at this time. HEENT:? Normocephalic, atraumatic, extraocular muscles intact, oral pharynx is clear and mucous membranes are moist. Neck: supple and symmetric, trachea is midline, no cervical adenopathy. Negative for JVD Chest:? Normal AP diameter and contour without kyphoscoliosis, no tachypnea, equal chest rise bilaterally. Lungs:? CTA b/l no wheezing rhonchi or rales. Cardio:?RRR no m/r/g. Abdomen: S NT ND. No CVA tenderness. Musculoskeletal:? Muscle strength and tone are equal within normal limits, no deformity. Extremities: No edema or joint effusions. No cyanosis or clubbing. Skin:? Pale,? Warm to touch,dry and intact without rashes, ulcerations or petechiae.? Neuro:? Alert and orientated x3,? sensation to touch intact in all extremities but reports diminished on the left, no gross deficits noted of cranial nerves. Psych:? Patient has a well-kept appearance, appropriate affect, mental status attitude thought context and judgment are appropriate for age. Objective ECG Impression: sinus bradycardia. Labs 05/18/23 10:20 05/18/23 10:20 Labs: Laboratory Results - last 24 hr 05/18/23 05/18/23 05/18/23 10:20 10:20 10:20 WBC 9.5 RBC 4.30 Hgb 13.4 Hct 39.8 MCV 92.5 MCH 31.1 MCHC 33.6 RDW 13.5 Plt Count 231 Neut % (Auto) 80.2 H Lymph % (Auto) 10.1 L [place] % (Auto) 6.8 Eos % (Auto) 2.5 Baso % (Auto) 0.4 Neut # (Auto) 7600 H Lymph # (Auto) 1000 L [place] # (Auto) 600 Eos # (Auto) 200 Baso # (Auto) 0 PT 11.1 INR 1.0 APTT 28 Sodium 138 Potassium 4.4 Chloride 105 Carbon Dioxide 28 BUN 20 H Creatinine 0.58 Estimated GFR > 60 BUN/Creatinine Ratio 34.5 H Glucose 122 H Calcium 9.3 Magnesium Total Bilirubin 0.4 AST 36 ALT 30 Alkaline Phosphatase 71 Total Creatine Kinase 64 Troponin I < 0.012 NT-Pro-B Natriuret Pep 128 Total Protein 7.1 Albumin 4.2 Globulin 2.9 Albumin/Globulin Ratio 1.4 Lipase 63 05/18/23 12:23 WBC RBC Hgb Hct MCV MCH MCHC RDW Plt Count Neut % (Auto) Lymph % (Auto) [place]oul[place] % (Auto) Eos % (Auto) Baso % (Auto) Neut # (Auto) Lymph # (Auto) [place]oul[place] # (Auto) Eos # (Auto) Baso # (Auto) PT INR APTT Sodium Potassium Chloride Carbon Dioxide BUN Creatinine Estimated GFR BUN/Creatinine Ratio Glucose Calcium Magnesium 2.1 Total Bilirubin AST ALT Alkaline Phosphatase Total Creatine Kinase Troponin I < 0.012 NT-Pro-B Natriuret Pep Total Protein Albumin Globulin Albumin/Globulin Ratio Lipase Assessment & Plan Assessment & Plan narrative: 1. Dizziness, probably BPPV - concern for CVA initially, but suspect BPPV based on history, Negative MRI - PT / OT evaluations ordered - orthostatic negative - scheduled meclizine and prn ativan for symptoms - consider side effect of quinine for leg cramps as well. 2. Paresthesias - check B12, iron panel for possible deficiencies. Check TSH. Consider side effects of quinine for restless legs. 3. Glaucoma - continue home medications 4. Syncope - continue telemetry and obtain echocardiogram given presentation, though history is reassuring. - orthostatic vitals negative x2. 5. Chest pain - HEART score is between 2-3. Depending on TTE results consider further evaluation with stress testing though does not seem likely cardiac in origin, suspect musculoskeletal. - troponin negative x2, given ongoing symptoms no further testing recommended unless noted arrythmias or symptoms. Code: Full, surrogate is patient's spouse DVT: Lovenox I have utilized all available immediate resources to obtain, update, or review the patient's current medications. Additional history obtained via discussion with ER provider. I have personally reviewed patient's EKG, imaging, labs and documentation. Additional testing ordered as discussed above. Discussed plan of care with patient. Quality VTE Deep Vein Thrombosis/Pulmonary Embolism Present on Admission: No MIPS - Admit I confirm the patient?s Advance Care Plan is present, Code status is documented, Surrogate decision maker is in patient?s record [If Yes, STOP here]: Yes
--- NOTE | 2023-05-18 18:28 | DI.ECHO.S_ITS ---
[facility] +---------+ : : [address] : : : : [id number] : : : : Phone: [phone] Echocardiogram Report + + :Name: ELIAZAR SERRANO V Study Date: 05/19/2023 Height: 66 in : :[facility] ReadingLocation: Weight: 145 lb : : Gender: Female BSA: 1.7 m2 : :: 1945 Age: 77 yrs BP: 167/63 mmHg: :Reason For Study: SYNCOPE : :Ordering Physician: BELEM, : :LEONEL RAYMUNDO Performed By: Hayley Pandey : :Referring: LEONEL PATRICIA : + + Interpretation Summary The ejection fraction is estimated to be 60-65%. Left ventricular wall motion is normal. There is no significant valvular heart disease. Procedure: A two-dimensional transthoracic echocardiogram with color flow and Doppler was performed. The study quality was technically adequate. There is no prior echocardiogram noted for this patient. The patient was in sinus bradycardia with heart rates between 50-56 bpm during the exam. Left Ventricle: The left ventricle is normal in size and wall thickness. The ejection fraction is estimated to be 60-65%. Left ventricular wall motion is normal. Right Ventricle: The right ventricle is normal in size and function. Atria: The left atrial size is normal. Right atrial size is normal. There is no Doppler evidence for an interatrial shunt. Mitral Valve: The mitral valve is normal in structure and function. There is mild mitral annular calcification. There is trace mitral regurgitation. Aortic Valve: The aortic valve is trileaflet. The aortic valve opens well. There is no aortic valve stenosis. No aortic regurgitation is present. Tricuspid Valve: The tricuspid valve is normal in structure and function. There is trace tricuspid regurgitation. Pulmonic Valve: The pulmonic valve is not well visualized. There is no pulmonic valvular regurgitation. Great Vessels: The aortic root is normal size. The dimensions of the ascending aorta are normal. The IVC is of normal diameter and collapses greater than 50% with a sniff. This suggests a low right atrial pressure of 3 mm Hg. Pericardium/ Pleura There is no pericardial effusion. There is no pleural effusion. MMode/2D Measurements & Calculations LVIDd: 4.5 cm LVOT diam: 1.9 cm LVIDs: 2.7 cm Ao root diam: 2.7 cm FS: 38.8 % asc Aorta Diam: 2.6 cm EPSS: 0.60 cm Ao Arch Diam (Prox Trans): 2.4 cm IVSd: 0.92 cm LVPWd: 0.83 cm LV humphreys. diameter/BSA (cm/m^2): 2.6 LV sys. diameter/BSA (cm/m^2): 1.6 LA A2 area: 13.9 cm2 RA long axis: 4.8 cm LA A4 area: 15.1 cm2 RA area: 14.2 cm2 LA length (vol): 4.8 cm RA vol: 35.6 ml LA vol: 36.8 ml RA : 20.4 ml/m2 LA vol index: 21.1 ml/m2 IVC diam: 1.0 cm RVD1 (basal): 3.3 cm RVD2 (mid): 2.6 cm TAPSE: 1.6 cm Doppler Measurements & Calculations Ao V2 max: 109.1 cm/sec LVOT Max Isac: 83.1 cm/sec Ao V2 mean: 76.2 cm/sec LV V1 max P.8 mmHg Ao max P.8 mmHg LV V1 VTI: 19.6 cm Ao mean P.6 mmHg MELISSA(I,D): 2.0 cm2 Ao V2 VTI: 27.8 cm MELISSA(V,D): 2.2 cm2 sev ratio: 0.70 MELISSA indexed to BSA (cm^2/m^2): 1.2 MV E max isac: 97.3 cm/sec SV(LVOT): 55.9 ml MV A max isac: 90.6 cm/sec MV E/A: 1.1 Med Peak E' Isac: 6.0 cm/sec E/E' med: 16.2 Lat Peak E' Isac: 6.0 cm/sec E/E' lat: 16.2 E/e' average: 16.2 MV dec time: 0.21 sec Reading Physician:REGGIE
[2023-05-18] MEDS: ATORVASTATIN 20 MG TABLET 40 MG PO (20:43)
[2023-05-18] MEDS: MECLIZINE HCL 12.5 MG TABLET 25 MG PO (20:43)
[2023-05-18] MEDS: MELATONIN 3 MG TABLET PO (21:08)
[2023-05-19] VITALS: O2SAT 97
[2023-05-19] MEDS: MECLIZINE HCL 12.5 MG TABLET 25 MG PO ×3 (00:10→11:05)
[2023-05-19 00:33] VITALS: BP 134/47; PULSE 59; RESP 16; TEMP 36.3; O2SAT 98
[2023-05-19 04:00] VITALS: BP 167/63; PULSE 63; RESP 18; TEMP 36.4; O2SAT 97; O2SAT 98
[2023-05-19 06:23] LABS: Add Manual Diff / Slide Review NO; Basophils Absolute Auto 0 /uL (0-100); Basophils Percent Auto 0.7 % (0-2); Eosinophils Absolute Auto 300 /uL (0-450); Eosinophils Percent Auto 5.7 % (2-4); Hematocrit 37.4 % (36-46); Hemoglobin 12.6 g/dL (12.0-16.0); Lymphocytes Absolute Auto 1200 /uL (1100-4500); Lymphocytes Percent Auto 21.1 % (25-40); Mean Corpuscular HGB Conc 33.8 % (30-36); Mean Corpuscular Hemoglobin 31.1 PG (26-34); Monocytes Absolute Auto 600 /uL (0-900); Monocytes Percent Auto 11.6 % (3-14); Neutrophils Absolute Auto 3400 /uL (1500-7000); Neutrophils Percent Auto 60.9 % (50-75); Platelet Count 189 X10^3/uL (150-400); Red Blood Cell Count 4.06 X10^6/uL (4.0-5.2); White Blood Cell Count 5.5 X10^3/uL (4.5-11.0)
[2023-05-19 06:33] LABS: HEMOLYSIS < 15 (0-50); Iron 75 ug/dL (37-170)
[2023-05-19 06:35] LABS: BUN Creatinine Ratio 26.7 (6-22); Blood Urea Nitrogen 16 mg/dL (7-17); Calcium 8.3 mg/dL (8.4-10.2); Carbon Dioxide 27 mmol/L (22-32); Chloride 106 mmol/L (98-107); Cholesterol 161 mg/dL (140-199); Estimated Glomerular Filt Rate > 60 mL/min (>60); Glucose 103 mg/dL (80-110); HDL Cholesterol 31 mg/dL (40-60); HEMOLYSIS < 15 (0-50); LDL Cholesterol Calculated 101 mg/dL (<100); Magnesium 2.1 mg/dL (1.6-2.3); Sodium 138 mmol/L (137-145); Triglycerides 144 mg/dL (35-150)
[2023-05-19 06:44] LABS: Percent Iron Saturation 20 % (15-50); Total Iron Binding Capacity 368 ug/dL (265-497); Transferrin 276 mg/dL (206-381)
[2023-05-19 07:08] LABS: TSH w/ Reflex to FT4 7.31 uIU/mL (0.47-4.68)
[2023-05-19 07:26] LABS: Vitamin B12 Reflex MMA if <400 510 pg/mL (239-931)
[2023-05-19 07:41] LABS: Free T4, Direct Thyroxine 0.77 ng/dL (0.78-2.19)
[2023-05-19 08:00] VITALS: BP 141/56; PULSE 66; RESP 17; TEMP 36.4; O2SAT 97
[2023-05-19] MEDS: LEVOTHYROXINE 50 MCG TABLET PO (08:32)
[2023-05-19] MEDS: ASPIRIN EC 81 MG TABLET PO (08:32)
[2023-05-19] MEDS: ENOXAPARIN 40 MG/0.4 ML SYRINGE SUBCUT (08:32)
[2023-05-19] MEDS: ACETAMINOPHEN 325 MG TABLET 650 MG PO (11:05)
--- NOTE | 2023-05-19 11:40 | PT.IIE ---
Surgical History (Last Updated 05/18/23 @ 18:19 by Jeff Mejia DO) H/O: hysterectomy Medical History (Last Updated 05/18/23 @ 18:19 by Jeff Mejia DO) Glaucoma Physical Therapy Inpatient Evaluation/Re-Eval M1 PT/OT-IP Prior Functional Status Start: 05/19/23 13:18 Freq: NEEDED Status: Active Protocol: Document 05/19/23 11:40 AB (Rec: 05/19/23 13:54 AB [id number]) Medical Review Prior Functional Status Medical History Reviewed Yes Communication able to make needs known Mobility and Gait pt stated that she is independent with all mobilities and ambulation without AD Social History Household Members spouse Living Arrangements House Number of Floors (Floors) One Floor Number of Stairs To Enter/Railing? 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 M2 PT-IP Current Condition Start: 05/19/23 13:18 Freq: NEEDED Status: Active Protocol: Document 05/19/23 11:40 AB (Rec: 05/19/23 13:54 AB [id number]) Physical Therapy Current Condition Current Condition Evaluation Date 05/19/23 Treatment Diagnosis dizziness; difficulty in walking Onset Date 05/18/23 M3 PT-IP Subjective Start: 05/19/23 13:18 Freq: NEEDED Status: Active Protocol: Document 05/19/23 11:40 AB (Rec: 05/19/23 13:54 AB [id number]) Subjective Physical Therapy Visit Type Type Initial Evaluation Visit Start Time 11:40 Visit Stop Time 12:30 Total Visit Minutes 50 Number of ASSOCIATE PROFESSOR OF BIOSTATISTICS Visits 0 Physical Therapy Visit Comments Patient Comments agreeable to do PT Therapy Pain Assessment Pain When Pain Assessed sudden Pain Present Pain Present Pain Reported Location Right Eye Scale Used sudden onset pain from R temporal side of head to R eye for ~ 15 sec Description Stabbing Pain Behaviors Facial Grimacing,Holding Area, Wincing M4 PT-IP Mobility and Gait Start: 05/19/23 13:18 Freq: NEEDED Status: Active Protocol: Document 05/19/23 11:40 AB (Rec: 05/19/23 13:54 AB [id number]) PT-Bed Mobility Assessment Supine to Sit Supine to Sit Standby Assistance PT-Transfer Assessment Sit to and From Stand Sit to and from Stand Contact Guard Assistance,1 Person Assistance,Use of Upper Extremities Equipment Transfer Assistive Device Gait Belt,Front Wheeled Walker Orthotic/Prosthetic Devices or Brace: No Transfers Transfer Destination Toilet Transfer Technique ambulated Transfer Ability Level of Assist Contact Guard Assistance,1 Person Assistance Comments Mobility Comments pt stated that dizziness initially started yesterday when she was sleeping and was constant. stated that dizziness was a spinning sensation and intensity is the same regardless of head position. Currently stated that she is not dizzy but lightheaded, more like a floating sensation but is worse when she moves her head suddenly. BP in supine: 155/ 58. pt completed supine to sit SBA. able to sit on EOB SBA. BP in sittin/48. pt with sudden onset of R sided pain of her head to the R eye. stated that pain is a stabbing pain but only lasted for ~ 15 sec. stated that she had that same episode earlier this morning and nurse is aware of it. completed sit to stand from EOB CGA and pt requested to use the toilet. educated pt to move slowly and to focus vision on one spot and avoid sudden head turning. pt ambulated to the toilet using FWW CGA. able to complete toileting needs SBA. ambulated from the toile towards the sink using FWW CGA and was able to maintain standing using FWW for support SBA to CGA while completing handwashing. pt ambulated more in room using FWW ~ 40 ft SBA to CGA. pt agreed to sit up on the chair. positioned on the chair. set up pt for lunch. call light and table placed within reach. Per hospitalist during interdisciplinary rounds meeting: suspecting pt for BPPV. currently, no available vestibular PT to assess pt. informed pt regarding outpt vestibular PT assessment and understood. Talked with nurse and informed. Gait Assessment Gait Gait Assistance Required: Standby Assistance,Contact Guard Assist Distance (Feet) 40 Able to Maintain Weight Bearing Status Yes During Gait Assistive Devices Assistive Device Gait Belt,Front Wheeled Walker Orthotic/Prosthetic Devices or Brace: No Factors Limiting Gait Function Factors Limiting Gait Function Decreased Activity Tolerance, Decreased Strength,Limited Range of Motion,Pain,Poor Balance PT-Balance Assessment Sitting Balance and Reactions Static Sitting Balance Ability Good Dynamic Sitting Balance Ability Good Standing Balance and Reactions Static Standing Balance Ability Fair Dynamic Standing Balance Ability Fair Device Used FWW M5 PT-IP Objective Assessments Start: 05/19/23 13:18 Freq: NEEDED Status: Active Protocol: Document 05/19/23 11:40 AB (Rec: 05/19/23 13:54 AB [id number]) Orientation Orientation/Cognition Level of Alertness Alert Orientation Name,Place,Situation Language Function Ability No Deficits Noted Safety Awareness Understands Safety Issues Memory Description No Deficits Noted Gross Range of Motion Lower Extremity ROM Assessment Within Functional Limits Strength Lower Extremity Strength Assessment Within Functional Limits Sensation Assessment Sensation Gross Sensation WNL Muscle Tone Muscle Tone WNL Yes M6 PT-IP Treatment Start: 05/19/23 13:18 Freq: NEEDED Status: Active Protocol: Document 05/19/23 11:40 AB (Rec: 05/19/23 13:54 AB [id number]) Physical Therapy Treatment Education Education Provided Safety M7 PT-IP Assessment and Plan Start: 05/19/23 13:18 Freq: NEEDED Status: Active Protocol: Document 05/19/23 11:40 AB (Rec: 05/19/23 13:54 AB [id number]) PT Summary Assessment and Plan Potential Rehabilitation Potential Fair Status of Condition at Evaluation Evolving Summary Impairments Pain,ROM,Strength,Balance, Coordination,Sensation,Tone, Cognition,Bed Mobility, Transfers,Gait,Activity Tolerance Assessment Summary pt presented to the ED with c/ o L sided numbness and dizziness. pt unremarkable MRI for CVA. Per hospitalist, suspecting BPPV but no vestibular therapist available to assess. Assessed pt's mobility with this PT and pt requiring SBA to CGA using FWW . informed pt regarding going for outpt PT for vestibular assessment and agreed. pt also found to have high BP: 153-165/48-58, high TSH contributing to pt's symptoms and mobility. Pt also informed PT that she has R ankle fx last december that has not healed completely and has been in seeing a doctor for further f/u plans but stated that her doctor allowed her to be WBAT on her RLE. Recommending pt to use FWW at this time for safety considering pt's lightheadedness and R ankle fx . pt agreed. pt will benefit from outpt PT for vestibular assessment. Goals Bed Mobility Goal Independent Transfer Goal Independent,Front Wheeled Walker Gait Goal Independent,Front Wheel Walker Gait Distance 150 Other Goals up/down 2 steps L rail SBA Days to Meet Goals 10 Frequency of Treatment Frequency Of Treatment Once a Day Treatment Plan Physical Therapy Treatment Plan Bed Mobility Training,Transfer Training,Gait Training, Therapeutic Exercise,Balance Retraining,Discharge Planning, Hot or Cold Pack,Neuromuscular Re-ed,Coordination Retraining Recommendations To Nursing Amount of Assist Needed 1 Person Assist Discharge Recommendations PT Discharge Recommendations Home with Assistance, Outpatient PT Transportation Needs at Discharge Private Vehicle
[2023-05-19 12:00] VITALS: BP 151/69; PULSE 60; RESP 17; TEMP 36.6; O2SAT 98
--- NOTE | 2023-05-19 15:07 | PM.DS.1 ---
History of Present Illness History of Present Illness Date Patient Seen: 05/19/23 Time Patient Seen: 15:08 Chief complaint: Syncope Chest Pressure Narrative: This is a 77 year old female with PMH of glaucoma who presented with abrupt onset of dizziness this morning. Patient over the last couple of days has been having paresthesias, with numbness of her left hand and feet. She states that she gets some tingling in her fingers, and has been feeling things on the floor of her home when nothing is there (feels like she has stepped on something like cat food). Her symptoms are worse with movement and sitting upright. She was needing to hold on to this to get around. She also noted some sharp chest pain and left shoulder pain this morning and had an episode of near syncope then brief syncope when moving. She denied any loss of bowel or bladder, no seizure activity. In the emergency room, initial evaluation was unremarkable including CT and CTA of her head. She was not orthostatic and the remainder of her vitals were unremarkable. She continued to have dizziness. MRI was performed after admission was discussed with the ER and does not show an acute infarct. Discharge Providers Provider Date of admission: 05/18/23 14:57 Discharge Date: 05/19/23 Primary care physician: VIVI Ovalles Consults: 05/18/23 15:54 Consult to Occupational Therapy Evaluate & Treat Comment: Physician Instructions: Evaluate and treat Consult to Physical Therapy Evaluate & Treat Comment: Physician Instructions: Evaluate and Treat Discharge provider: Jeff Mejia DO Summary Hospital Course Discharge Diagnosis: 1. Dizziness, probably BPPV 2. Paresthesias 3. Glaucoma 4. Syncope 5. Chest pain 6. possible quinine side effect Hospital Course: This is a 77 year old female with PMH of glaucoma who presented with a variety of symptoms, including syncope and pre-syncope, severe vertigo, paresthesias and musculoskeletal sounding chest pain. MRI was negative for acute infarcts and stroke workup was unremarkable. Echocardiogram was also unremarkable with no evidence of cardiac etiology. Telemetry was unremarkable with no events. Orthostatic vitals were negative as well. Her chest symptoms had improved, and based on presentation her HEART score was between 2-3. Further evaluation with primary care is recommended, ACS was ruled out. Her TSH was a bit high at 7, with low free t4. Hypothyroid may explain some of her symptoms and she was started on levothyroxine 50 mcg. PCP follow up is recommended for repeat thyroid testing. B12 was >500, iron panel was unremarkable (further workup for paresthesias). She does take quinine for restless legs, which may be contributing to her symptoms. She was advised to try to cut back on use of this medication. Time Spent with Patient Time spent: Greater than 30 minutes Exam Vital Signs (past 8 hours): - 05/19/23 08:00 05/19/23 08:00 05/19/23 12:00 Temperature 97.5 F L 97.8 F Pulse Rate 66 60 Respiratory Rate 17 17 Blood Pressure 141/56 H 151/69 H Pulse Oximetry 97 97 98 Oxygen Delivery Method Room Air Oxygen Flow Rate 0 0 0 05/19/23 12:00 Temperature Pulse Rate Respiratory Rate Blood Pressure Pulse Oximetry 98 Oxygen Delivery Method Room Air Oxygen Flow Rate 0 Oxygen Delivery Method Room Air Oxygen Flow Rate 0 Narrative Exam Narrative: General:? Patient is well developed and well nourished, in no distress at this time. HEENT:? Normocephalic, atraumatic, extraocular muscles intact, oral pharynx is clear and mucous membranes are moist. Neck: supple and symmetric, trachea is midline, no cervical adenopathy. Negative for JVD Chest:? Normal AP diameter and contour without kyphoscoliosis, no tachypnea, equal chest rise bilaterally. Lungs:? CTA b/l no wheezing rhonchi or rales. Cardio:?RRR no m/r/g. Abdomen: S NT ND. No CVA tenderness. Musculoskeletal:? Muscle strength and tone are equal within normal limits, no deformity. Extremities: No edema or joint effusions. No cyanosis or clubbing. Skin:? Pale,? Warm to touch,dry and intact without rashes, ulcerations or petechiae.? Neuro:? Alert and orientated x3,? sensation to touch intact in all extremities but reports diminished on the left, no gross deficits noted of cranial nerves. Psych:? Patient has a well-kept appearance, appropriate affect, mental status attitude thought context and judgment are appropriate for age. Objective Labs 05/19/23 05:59 05/19/23 05:59 Labs: Laboratory Results - last 24 hr 05/19/23 05/19/23 05/19/23 05:59 05:59 05:59 WBC 5.5 RBC 4.06 Hgb 12.6 Hct 37.4 MCV 92.0 MCH 31.1 MCHC 33.8 RDW 13.0 Plt Count 189 Neut % (Auto) 60.9 Lymph % (Auto) 21.1 L Borden % (Auto) 11.6 Eos % (Auto) 5.7 H Baso % (Auto) 0.7 Neut # (Auto) 3400 Lymph # (Auto) 1200 Borden # (Auto) 600 Eos # (Auto) 300 Baso # (Auto) 0 Sodium 138 Potassium 4.0 Chloride 106 Carbon Dioxide 27 BUN 16 Creatinine 0.60 Estimated GFR > 60 BUN/Creatinine Ratio 26.7 H Glucose 103 Calcium 8.3 L Magnesium 2.1 Iron TIBC % Saturation Transferrin Triglycerides 144 Cholesterol 161 LDL Cholesterol, Calc 101 H HDL Cholesterol 31 L Vitamin B12 TSH 7.31 H Free T4 0.77 L 05/19/23 05/19/23 05:59 05:59 WBC RBC Hgb Hct MCV MCH MCHC RDW Plt Count Neut % (Auto) Lymph % (Auto) Borden % (Auto) Eos % (Auto) Baso % (Auto) Neut # (Auto) Lymph # (Auto) Borden # (Auto) Eos # (Auto) Baso # (Auto) Sodium Potassium Chloride Carbon Dioxide BUN Creatinine Estimated GFR BUN/Creatinine Ratio Glucose Calcium Magnesium Iron 75 TIBC 368 % Saturation 20 Transferrin 276 Triglycerides Cholesterol LDL Cholesterol, Calc HDL Cholesterol Vitamin B12 510 TSH Free T4 [facility] Medical History (Updated 05/18/23 @ 18:19 by Jeff Mejia DO) Glaucoma Surgical History (Updated 05/18/23 @ 18:19 by Jeff Mejia DO) H/O: hysterectomy Social History household members: spouse Smoking Status: Never smoker alcohol intake: current Discharge Plan Discharge Plan Patient Disposition: Home Provider Discharge Comment: You were admitted to the hospital with vertigo, MRI negative for stroke and improved with meclizine. Your thyroid hormone level is a bit low, started on replacement. Please follow up with your PCP in 1-2 weeks for follow up. Some of your symptoms can be correlated with quinine as well, consider cutting back on use if symptoms return. Recommend meclizine 3x per day for 1-2 days, then as needed. Discharge orders & Medications Prescriptions: New levothyroxine [Synthroid] 50 mcg Tablet 50 mcg PO DAILY@0600 30 Days Qty: 30 0RF meclizine 25 mg tablet 25 mg PO TID PRN (Reason: dizziness) 7 Days Qty: 21 0RF Continued estrogens-methyltestosterone 0.625-1.25 mg tablet 1 tab PO DAILY Patient Comments: TAKE 1 TABLET BY MOUTH EVERY DAY brimonidine-timolol [Combigan] 0.2-0.5 % drops 1 drp EYE-BOTH BID quinine sulfate 324 mg capsule 324 mg PO ONCE PM PRN (Reason: cramps) Follow up/Referrals: Hanane Luis ARNP [Primary Care Provider] - (please call to schedule a hospital follow up with-in 1-2 weeks of discharge from hospital ) Diet/Activity/Treatments Diet: Diet as Tolerated and Regular Activity: As tolerated, no restrictions. Visit Report/Discharge Packet Instructions: Benign Paroxysmal Positional Vertigo, DI for Benign Paroxysmal Positional Vertigo, Levothyroxine, Meclizine, DI for Hypothyroidism Stand Alone Forms: Patient Portal/API, Stroke Signs & Symptoms Discharge Data Primary Care Provider: Hanane Luis Attending Provider: Jeff Mejia Admit Date/Time: 05/18/23 14:57 Discharges patient from system. Discharge Date/Time: 05/19/23 16:11 Quality VTE Deep Vein Thrombosis/Pulmonary Embolism Present on Admission: No
--- NOTE | 2023-05-19 15:30 | CM.DANOTE ---
Discharge Planning/Care Management CM Discharge Assessment Start: 05/19/23 15:16 Freq: Status: Active Protocol: Document 05/19/23 15:16 AMANDA (Rec: 05/19/23 15:30 AMANDA [id number]) Discharge Planning Assessment Assigned Oral Surgery Assistant COLE Rasmussen DPOA/Assigned Designee Name Clyde Samuel, spouse Contact Information [phone] Advance Directives? Yes Advance Directives on File No: full code History Provided By Patient,Medical Record Prior Living Arrangements House Household Members spouse Type of transporation used prior to Drives own vehicle admit Independent with ADL's Yes Is patient alert and oriented? Yes Barriers to Discharge No Comment Patient arrives with syncope, chest pressure and was initially worked up to r/o stroke. Patient felt to have vertigo and sx improved and will discharge home today. Met w/patient briefly and she denied needs at this time. 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
--- NOTE | 2023-05-19 16:08 | PC.NURSE ---
Pt is dressed and ready for discharge home with Spouse. IV has been removed. Went over d/c instructions with Pt and Spouse-discussed d/c meds, time of last dose, reviewed stroke education, discussed getting up slowly to decrease dizziness or risk of syncope. Reminded Pt to take thyroid med on an empty stomach and drink plenty of fluids to prevent constipation or dehydration and to follow up as recommended with her PCP. Pt out via w/c by [facility] to POV with Spouse and all belongings.
[2023-05-20 02:56] LABS: x Labcorp Estim. Avg Glu (eAG) 128 mg/dL (.); x Labcorp Hemoglobin A1c 6.1 % (4.8-5.6)
== END 2023-05-19 16:11 | disposition home or self-care (01) ==
LOC: ED 14:38 → AC 14:59
PROVIDERS: Admitting Provider Internal Medicine; Emergency Provider Emergency Medicine; Referring Provider Emergency Medicine; Visit Provider Internal Medicine
DX: R55 Syncope and collapse (principal); R42 Dizziness and giddiness; R20.0 Anesthesia of skin; R07.9 Chest pain, unspecified; H40.9 Unspecified glaucoma
CPT/HCPCS: 36415; 70450; 70496; 70498; 70551; 71045; 80048; 80053; 80061; 81003; 82550; 82607; 83036; 83540; 83550; 83690; 83735; 83880; 84439; 84443; 84484; 85025; 85610; 85730; 93005; 93010; 93306; 96361; 96372; 96374; 97162; 97530; 99284; 99285; G0378; J1650; J2060; Q9967

== ENCOUNTER → 2023-05-27 12:41 | Outpatient (CLI) | payer MEDICARE, SELFPAY ==
[2023-05-18 15:14] VITALS: BMI 23.3
--- NOTE | 2023-05-27 | DI.RAD.S_ITS ---
PROCEDURE: XR FOOT RT MIN 3V INDICATIONS: Pain in right foot TECHNIQUE: 3 views of the foot were acquired. COMPARISON: [facility], , XR FOOT RT MIN 3V, 10/21/2022, 10:15. FINDINGS: Bones: Old base of the 5th metatarsal healed fracture noted. No new fracture or lytic lesion. Soft tissues: No tibiotalar joint effusion. Achilles tendon appears normal. IMPRESSION: Healed base of the 5th metatarsal fracture Approved by: Shahbaz Uribe M.D. on 05/27/2023 at 19:06
== END ==
PROVIDERS: Referring Provider Podiatrist; Visit Provider Podiatrist
DX: S92.351S Displaced fracture of fifth metatarsal bone, right foot, sequela (principal); M79.671 Pain in right foot
CPT/HCPCS: 73630

== ENCOUNTER → 2023-06-01 11:42 | Outpatient (CLI) | payer MEDICARE, SELFPAY ==
[2023-05-18 15:14] VITALS: BMI 23.3
--- NOTE | 2023-06-01 | DI.RAD.S_ITS ---
Bone Density Report Name: ELIAZAR SERRANO V Age: 77 Sex: Female Ethnicity: White Date of : 1945 Indication: postmenopausal; screening for osteoporosis; parental hip fracture; history of glucocorticoids; prior fracture; Referring Provider: ANTONIETA PEREZ Study: Bone densitometry was performed. Exam Date: June 01, 2023 Accession number: [id number] Bone Density: Region BMD T-score Z-score Classification AP Spine(L1-L4) 0.906 -1.3 1.2 Osteopenia Femoral Neck (Left) 0.621 -2.1 0.1 Osteopenia Total Hip (Left) 0.767 -1.4 0.4 Osteopenia Femoral Neck (Right) 0.601 -2.2 -0.1 Osteopenia Total Hip (Right) 0.756 -1.5 0.3 Osteopenia Total Hip Mean 0.762 -1.5 0.4 Osteopenia World Health Organization criteria for BMD impression classify patients as: Normal (T-score at or above -1.0), Osteopenia (T-score between -1.0 and -2.5), or Osteoporosis (T-score at or below -2.5). 10-year Fracture Risk(1): Major Osteoporotic Fracture 51% Hip Fracture 35% Reported Risk Factors: [place] (), Neck BMD=0.601, BMI=23.1, previous fracture, parental fracture, glucocorticoids (1) FRAX(R) Version 3.08. Fracture probability calculated for an untreated patient. Fracture probability may be lower if the patient has received treatment. Impression: The patient has low bone mass, based on the Right Femoral Neck T-score. The patient has an estimated ten-year risk of hip fracture of 35% and an estimated ten-year risk of major fracture of 51%, based on the WHO FRAX algorithm. The patient has risk factors, including: parental hip fracture, previous fracture, history of glucocorticoid therapy. Discussion: BONE DENSITY IS LOW AT ONE OR MORE SKELETAL SITES. THE PATIENT'S BMD AND CLINICAL RISK FACTORS CONTRIBUTE TO THIS PATIENT'S HIGH RISK OF FRACTURE. This patient's lowest T-score is low at one or more skeletal sites. It meets the World Health Organization's (WHO) criteria for low bone mass (T-score between -1.0 and -2.5). The patient's 10-year risk of hip fracture and 10 year risk of a major osteoporotic fracture as calculated by FRAX exceeds the threshold where pharmacological therapy is recommended by the National Osteoporosis Foundation (NOF). However, all treatment decisions require clinical judgment and consideration of individual patient factors, including patient preferences, comorbidities, previous drug use, risk factors not captured in the FRAX model (e.g., frailty, falls, vitamin D deficiency, increased bone turnover, interval significant decline in bone density) and possible under or overestimation of fracture risk by FRAX. The patient should follow a healthful lifestyle (good nutrition with adequate calcium and vitamin D, and appropriate weight-bearing exercise). Follow-Up: Consider a repeat BMD and Vertebral Fracture Assessment (VFA) exam in 2 years or sooner if medically necessary, to reassess this patient's status. Reported by: SOLIS PUENTES MD on 06/01/2023 3:08:00 PM.
== END ==
PROVIDERS: PCP Registered Nurse; Referring Provider Registered Nurse; Visit Provider Registered Nurse
DX: M85.851 Other specified disorders of bone density and structure, right thigh (principal); Z13.820 Encounter for screening for osteoporosis; Z78.0 Asymptomatic menopausal state; Z87.311 Personal history of (healed) other pathological fracture; Z90.710 Acquired absence of both cervix and uterus; Z92.241 Personal history of systemic steroid therapy
CPT/HCPCS: 77080

== ENCOUNTER 2023-06-12 14:02 | Outpatient (RCR) | payer MEDICARE, SELFPAY ==
[2023-05-18 15:14] VITALS: BMI 23.3
--- NOTE | 2023-06-12 16:28 | PT.OIE ---
Current Diagnoses Transient cerebral ischemic attack, unspecified (06/12/23) Dizziness and giddiness (06/12/23) Past Medical History (Last Updated 05/18/23 @ 18:19 by Jeff Mejia DO) Glaucoma Past Surgical History (Last Updated 05/18/23 @ 18:19 by Jeff Mejia DO) H/O: hysterectomy Visit Care Team Role Provider Type VIVI Tapia Family Provider Advanced Forensic Dna Analyst Primary Care Provider Specialty: [facility] Address: [address] [place] [address], [id number] Email: [email or web address] Eric Cuevas DO Attending Provider Physician Referring Provider Specialty: [facility] Address: [address] [place] [address], [id number] Email: [email or web address] [facility] Initial Evaluation PT-OP-A Visit Information Start: 06/12/23 16:01 Freq: Status: Active Protocol: Document 06/12/23 14:15 DCW (Rec: 06/12/23 16:28 [facility] [id number]) Out-Patient Physical Therapy Visit Information Visit Information Visit Type Initial Evaluation Visit Start Time 14:15 Visit Stop Time 14:55 Total Visit Minutes 40 Visit Number 1 Number of CONTROL PANEL OPERATOR Visits 0 Evaluation Information Evaluation Date 06/12/23 PT-OP-B Current Condition Start: 06/12/23 16:01 Freq: Status: Active Protocol: Document 06/12/23 14:15 DCW (Rec: 06/12/23 16:28 [facility] [id number]) Current Condition History of Current Condition Onset Date One month Current Complaints Spontaneous episodes of vertigo lasting ~15 minutes, 1 -2x/day History of Current Condition Pt is a 77 year old female complaining of a one month history of spontaneous vertigo . Pt reports episodes last 15 minutes. During an episode, symptoms are worsened by moving or closing her eyes, but they do not seem to be started by anything specific and can occur any time. Pt denies recent hearing changes, tinnitus, diplopia, dysarthria, discoordination, or decreased mentation/ consciousness. Did have two falls the first day her episodes began. Pt reports that she woke up to a boat rocking sensation, which then transitioned to ~15 minutes of nausea and vertigo. She drove herself to the ED, but got confused and couldn't remember where to go. She eventually found a walk-in clinic, walked in, and then collapsed. Pt was evaluated in the ED for possible CVA, but imaging was negative, and was then admitted for a few days days. Pt reports that other than during her active episodes, she feels fine and has no lingering effects or imbalance . Notes she has an upcoming appointment with a neurologist , she believes next week. PT-OP-C Subjective Start: 06/12/23 16: Freq: Status: Active Protocol: Document 06/12/23 14:15 DCW (Rec: 06/12/23 16:28 [facility] [id number]) OP-PT Subjective Patient Comments Patient Comments They told me it was brain rocks. I asked specifically about ear crystals, and they said it wasn't that, it was calcium build up in my brain. PT-OP-O Vestibular Start: 06/12/23 16:01 Freq: Status: Active Protocol: Document 06/12/23 14:15 DCW (Rec: 06/12/23 16:28 [facility] [id number]) Vestibular Assessment Screening Tests Vestibular Artery Screen Negative Auditory Tests Logan Test Within normal limits Rinne Test Negative Air Conduction Results Equal Visual Testing Smooth Pursuits Horizontal WNL Smooth Pursuits Vertical WNL Saccades Horizontal WNL Saccades Vertical WNL Heave Test Positive Bilateral Thrust Head Positive Bilateral Positional Testing Odalys-Hallpike Negative Left,Negative Right Rolling Test Negative Left,Negative Right PT-OP-T Assessment and Plan Start: 06/12/23 16:01 Freq: Status: Active Protocol: Document 06/12/23 14:15 DCW (Rec: 06/12/23 16:28 [facility] [id number]) Physical Therapy Assessment Evaluation Complexity Number of Personal Factors/Comorbidities 0 Number of Body Systems Impaired 1-2 Clinical Presentation at Evaluation Unstable Assessment Summary Assessment Pt presents for a vestibular rehab evaluation with a very unusual history. Per pt, she was told she has brain rocks, reports she asked very specifically if it was ear rocks, or BPPV, and was told no, it was in her brain, and could be causing fluid build- up, which is why she has a neurology referral. 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 All that being said, vestibular evaluation unremarkable, and pt's subjective history of spontaneous episodes unrelated to positional changes lasting ~15 minutes and occurring 1- 2x/day do not match with typical BPPV complaints. Additionally, since pt reports no lingering effects to her balance/stability while not experiencing an acute episode, it would be unlikely for pt to benefit much from vestibular rehabilitation. Therapist is in agreement with patient that her best bet at this time is to follow-through with her upcoming neurology appointment, potentially next week. Pt unlikely to benefit from vestibular therapy at this time, although is certainly welcome to come back for another assessment if determined it would be beneficial, pending results from neurology visit if a new referral is provided. Physical Therapy Plan Frequency and Duration Plan of Care Start Date 06/12/23 Plan of Care End Date 06/13/23 Discharge Physical Therapy Discharge Comments Further Vestibular Rehabilitation not indicated at this time. Next Visit Focus/Plan Next Note Type Discharge Summary
--- NOTE | 2023-06-12 16:28 | PT.OPPOC ---
Physical, Occupational & Speech Therapy At [facility] Current Diagnoses Transient cerebral ischemic attack, unspecified (06/12/23) Dizziness and giddiness (06/12/23) Visit Care Team Role Provider Type VIVI Tapia Family Provider Advanced Swift Tender Primary Care Provider Specialty: [facility] Address: [address] [place] [address], [id number] Email: [email or web address] Eric Cuevas DO Attending Provider Physician Referring Provider Specialty: [facility] Address: [address] [place] [address], [address] Email: [email or web address] Plan Of Care PT-OP-T Assessment and Plan Start: 06/12/23 16:01 Freq: Status: Active Protocol: Document 06/12/23 14:15 DCW (Rec: 06/12/23 16:28 [facility] [id number]) Physical Therapy Assessment Evaluation Complexity Number of Personal Factors/Comorbidities 0 Number of Body Systems Impaired 1-2 Clinical Presentation at Evaluation Unstable Assessment Summary Assessment Pt presents for a vestibular rehab evaluation with a very unusual history. Per pt, she was told she has brain rocks, reports she asked very specifically if it was ear rocks, or BPPV, and was told no, it was in her brain, and could be causing fluid build- up, which is why she has a neurology referral. 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 All that being said, vestibular evaluation unremarkable, and pt's subjective history of spontaneous episodes unrelated to positional changes lasting ~15 minutes and occurring 1- 2x/day do not match with typical BPPV complaints. Additionally, since pt reports no lingering effects to her balance/stability while not experiencing an acute episode, it would be unlikely for pt to benefit much from vestibular rehabilitation. Therapist is in agreement with patient that her best bet at this time is to follow-through with her upcoming neurology appointment, potentially next week. Pt unlikely to benefit from vestibular therapy at this time, although is certainly welcome to come back for another assessment if determined it would be beneficial, pending results from neurology visit if a new referral is provided. Physical Therapy Plan Frequency and Duration Plan of Care Start Date 06/12/23 Plan of Care End Date 06/13/23 Discharge Physical Therapy Discharge Comments Further Vestibular Rehabilitation not indicated at this time. Next Visit Focus/Plan Next Note Type Discharge Summary Plan of Care Dates Plan of Care Start Date 06/12/23 Plan of Care End Date 06/13/23 Electronically Signed by: Reinier Thompson, PT 06/12/23 1081 If you are in agreement with this Plan of Care, please return a signed and dated copy. I have reviewed this Plan of Care and certify that the skilled therapy services above are required to meet the patient?s needs. Physician Signature Date Printed Name and Credentials Clinical Instructor Signature Printed Name and Credentials
== END 2023-06-16 15:09 | disposition home or self-care (01) ==
LOC: PHYS 14:02
PROVIDERS: Family Provider Registered Nurse; PCP Registered Nurse; Referring Provider Family Medicine; Visit Provider Family Medicine
DX: R42 Dizziness and giddiness (principal); G45.9 Transient cerebral ischemic attack, unspecified
CPT/HCPCS: 97161

== ENCOUNTER → 2023-09-22 14:57 | Outpatient (CLI) | payer MEDICARE, SELFPAY ==
[2023-05-18 15:14] VITALS: BMI 23.3
--- NOTE | 2023-09-22 | DI.RAD.S_ITS ---
PROCEDURE: XR FINGER RT MIN 2V INDICATIONS: CRUSHING INJURY OF RIGHT THUMB TECHNIQUE: AP hand, 2 views of the right thumb acquired. COMPARISON: None. FINDINGS: Bones: Probable nondisplaced fracture involving the lateral basilar aspect of the distal phalanx of the thumb extending to the articular surface. Prominent osteophytes are present at that joint. No suspicious bony lesions. Soft tissues: No suspicious soft tissue calcifications. IMPRESSION: Probable nondisplaced fracture of base of distal phalanx of thumb. Dictated by: Rey Fowler M.D. on 09/22/2023 at 18:28 Approved by: Rey Fowler M.D. on 09/22/2023 at 18:30
== END ==
PROVIDERS: Family Provider Registered Nurse; PCP Registered Nurse; Referring Provider Internal Medicine; Visit Provider Internal Medicine
DX: S67.01XA Crushing injury of right thumb, initial encounter (principal); X58.XXXA Exposure to other specified factors, initial encounter
CPT/HCPCS: 73140

== ENCOUNTER → 2025-06-29 08:20 | Outpatient (CLI) | payer MEDICARE, SELFPAY ==
[2023-05-18 15:14] VITALS: BMI 23.3
--- NOTE | 2025-06-29 08:21 | DI.US.S_ITS ---
PROCEDURE: US ABDOMEN COMPLETE INDICATIONS: EPIGASTRIC ABD PAIN/CONSTIPATION. H/O [facility] GI/PANCREAS CANCER TECHNIQUE: Real-time scanning was performed of the abdominal and retroperitoneal organs, with image documentation. COMPARISON: None. FINDINGS: Liver: Liver is normal in size and homogeneous in echotexture. No mass identified. Gallbladder: Nondilated. Gallbladder fold. No stones or sludge. Normal gallbladder wall thickness. No pericholecystic fluid. Negative sonographic Morton's sign. Biliary ducts: Intrahepatic bile ducts are non-dilated. Extrahepatic bile duct caliber measures 4 mm. Normal is 6-7 mm or less in diameter, or 10 mm or less post-cholecystectomy. Pancreas: Visualized portions of the pancreas are sonographically normal. Spleen: Spleen is normal in size and homogeneous in echotexture. Measures 9 cm. Kidneys: Kidneys are normal in size and echotexture. Right kidney measures 9.3 cm long; left kidney measures 9.8 cm long. No hydronephrosis. Echogenic foci in the left kidney superior pole and midpole measuring 0.5 cm and 0.5 cm. Possibly angiomyolipomas or kidney stones. Aorta: Visualized aorta is normal in caliber at less than 3 cm. Iliacs: Proximal common iliac arteries are normal in caliber at less than 2.5 cm. IVC: Intrahepatic inferior vena cava is patent. Miscellaneous: No free abdominal fluid. IMPRESSION: 1. No acute cholecystitis. No gallstones. 2. No hydronephrosis. Possible left kidney stone and/or AML measuring 0.5 cm. 3. No free fluid. No obvious mass. Consider CT abdomen pelvis with IV contrast for additional evaluation. Dictated by: Vitaly Mata M.D. on 06/29/2025 at 13:24 Approved by: Vitaly Mata M.D. on 06/29/2025 at 13:30
== END ==
PROVIDERS: Family Provider Registered Nurse; PCP Registered Nurse; Referring Provider Registered Nurse; Visit Provider Physician Assistant
DX: K59.03 Drug induced constipation (principal); R10.13 Epigastric pain; F43.9 Reaction to severe stress, unspecified; F41.9 Anxiety disorder, unspecified; Z80.0 Family history of malignant neoplasm of digestive organs; Z87.11 Personal history of peptic ulcer disease
CPT/HCPCS: 76700

== ENCOUNTER 2025-07-10 15:20 | Observation (INO) | payer MEDICARE, SELFPAY ==
[2023-05-18 15:14] VITALS: BMI 23.3
[2025-07-10] VITALS (14 sets, daily range): BP systolic 120–164; BP diastolic 41–75; PULSE 51–65; RESP 16–24; TEMP 36.2–36.6; O2SAT 94–100; BMI 22.8
--- NOTE | 2025-07-10 15:45 | EKG_ITS ---
[address] [address] Test Date: 2025-07-10 Pat Name: Tor Samuel Department: Room: Gender: Female Residential Life Director: ESEQUIEL : 1945 Requested By: Order Number: [id number] Reading MD: Gordy Simeon Measurements Intervals [place] Rate: 51 P: 64 [place]: 154 QRS: 29 QRSD: 88 T: 29 QT: 468 QTc: 431 Interpretive Statements Sinus bradycardia Electronically Signed On 07-12-2025 8:13:07 PDT by Gordy Simeon
--- NOTE | 2025-07-10 15:45 | DI.CT.S_ITS ---
PROCEDURE: CT ANGIO HEAD AND NECK INDICATIONS: numbness weakness TECHNIQUE: After the administration of intravenous contrast, 1 mm thick sections acquired from the aortic arch through the [place]. 3-dimensional rzpfggb-kbggymbnl-cnqeytonij (MIP) and/or volume rendering reformats were acquired of the central intracranial vasculature and neck separately. For radiation dose reduction, the following was used: automated exposure control, adjustment of mA and/or kV according to patient size. COMPARISON: [facility], CT, CT STROKE, 07/10/2025, 15:53. [facility], CT, CT ANGIO HEAD AND NECK, 05/18/2023, 13:20. FINDINGS: Image quality: Diagnostic. Cerebral CT Angiogram: Internal carotid arteries: No acute findings. Intracranial ICA are patent with no significant stenosis. No occlusion. No aneurysm. Anterior cerebral arteries: Unremarkable. No significant stenosis. No occlusion. No aneurysm. Middle cerebral arteries: Unremarkable. No significant stenosis. No occlusion. No aneurysm. Posterior cerebral arteries: Unremarkable. No significant stenosis. No occlusion. No aneurysm. Basilar artery: Unremarkable. No significant stenosis. No occlusion. No aneurysm. Vertebral arteries: Minimal left vertebral artery dominance. Dural venous sinuses: Unremarkable given phase of enhancement. Other: Arterial phase appearance of the brain parenchyma is unremarkable. Neck CT Angiogram: Internal carotid arteries: Unremarkable. No significant stenosis. No dissection or occlusion. Common carotid arteries: Unremarkable. No significant stenosis. No dissection or occlusion. External carotid arteries: Unremarkable. No occlusion. Vertebral arteries: Unremarkable. No significant stenosis. No dissection or occlusion. Aortic Arch and Mediastinum: Partially visualized aortic arch unremarkable without evidence of aneurysm. Origins of the great vessels unremarkable. Other: Arterial phase soft tissues of the neck and chest are unremarkable. IMPRESSION: No significant intracranial arterial abnormality is seen. No significant abnormality is seen within the arteries of the neck. Any quantitative measurements of stenosis were performed using NASCET criteria. Dictated by: Maddy Abarca M.D. on 07/10/2025 at 16:47 Approved by: Maddy Abarca M.D. on 07/10/2025 at 16:49
--- NOTE | 2025-07-10 15:45 | DI.CT.S_ITS ---
PROCEDURE: CT STROKE INDICATIONS: numbness weakness TECHNIQUE: Noncontrast 4.5 mm thick angled axial sections acquired from the foramen magnum to the vertex, with coronal reformats. For radiation dose reduction, the following was used: automated exposure control, adjustment of mA and/or kV according to patient size. COMPARISON: MR, MR HEAD/BRAIN WO CON, 05/18/2023, 14:55. [facility], CT, CT ANGIO HEAD AND NECK, 05/18/2023, 13:20. CT, CT HEAD/BRAIN WO CON, 05/18/2023, 13:20. FINDINGS: Image quality: Diagnostic. CSF spaces: Basal cisterns are patent. No extra-axial fluid collections. The ventricles are symmetric in size and shape. Brain: No intracranial bleeds or mass effect. There is cerebral volume loss, with resultant ventricular and sulcal prominence. There are periventricular and deep white matter chronic small vessel ischemic changes. There is intracranial internal carotid artery atherosclerosis. Skull and face: Calvarium and visualized facial bones appear intact, without suspicious lesions. Sinuses: Visualized sinuses and mastoids are clear. IMPRESSION: 1. No acute intracranial process. 2. Mild to moderate atrophy and chronic microvascular ischemic changes. The above findings were discussed with Dr. Nicky Jones on 07/10/2025 at 4:07 p.m. This study fulfills neurological imaging criteria for inclusion or exclusion of acute stroke therapies based on available published neurological guidelines. Dictated by: Maddy Abarca M.D. on 07/10/2025 at 16:07 Approved by: Maddy Abarca M.D. on 07/10/2025 at 16:08
--- NOTE | 2025-07-10 15:53 | ED_ITS ---
HPI - Neuro Symptoms/Deficit General Chief Complaint: Neuro Symptoms/Deficit Stated Complaint: Sent by PCP suspects stroke or TIA Time Seen by Provider: 07/10/25 15:45 History of Present Illness HPI Narrative: Patient is a 79-year-old female history of glaucoma on hormone replacement presenting today with last known well of 1:00 p.m.. She reports that she was at her doctor's office Dr. Savage to go over some blood tests she got into an elevator when she felt really dizzy lightheaded. She noticed some tingling and numbness in the left foot along with her left hand. No significant weakness but she says things are quite the same. She is not on any antiplatelet or anticoagulation medication. Denies any headache nausea or vomiting. No chest pain or palpitations. Related Data Home Medications ?Medication ?Instructions ?Recorded ?Confirmed brimonidine 0.2 %-timolol 0.5 % 1 drp EYE-BOTH BID 06/02/23 eye drops (Combigan) esterified 1 tab PO DAILY 06/24/2205/13 estrogens-methyltestosterone 0.625 mg-1.25 mg tablet quinine sulfate 324 mg capsule 324 mg PO ONCE PM PRN c ramps 05/18/23 06/02/23 Allergies Allergy/AdvReac Type Severity Reaction Status Date / Time No Known Drug Allergies Allergy Verified 06/02/23 10:44 Patient History Medical History Migraine headache with aura Hypothyroidism Hypertension Transient ischemic attack Vision disorder Eczema Stroke Fractures Foot pain Mumps Measles Chicken pox Skin cancer Glaucoma Surgical History Anesthesia H/O: hysterectomy Family History Father Colon cancer Prostate cancer Mother Lung cancer Diabetes mellitus Stroke Sister Stroke Social History household members: spouse Smoking Status: Never smoker alcohol intake: current alcohol intake frequency: holidays/special occasions only Exam Initial Vital Signs Initial Vital Signs: Vital Signs Temperature 97.8 F 07/10/25 15:49 Pulse Rate 58 L 07/10/25 15:49 Respiratory Rate 16 07/10/25 15:49 Blood Pressure 131/75 09/29/25 15:49 Pulse Oximetry 100 07/10/25 15:49 Oxygen Delivery Method Room Air 07/10/25 15:49 GENERAL: Alert pleasant 79-year-old female and in no acute distress. HEENT: Head atraumatic,EOMI, pupils reactive, face symmetric, moist mucous membranes CARDIOVASCULAR: Regular rate and rhythm without murmurs, rubs or gallops. RESPIRATORY: Breath sounds equal bilaterally, no wheezes rales or rhonchi. ABDOMEN: Soft, nontender. Normoactive bowel sounds all 4 quadrants. No guarding or rebound. EXTREMITIES: Normal range of motion, no clubbing or edema. Neurovascularly intact NEUROLOGICAL: Alert and oriented x4.Normal gait and speech. Cranial nerves II through XII grossly intact. Poor zlkebu-ln-rctu in both arms, good vypk-tl-stib, strength equal bilaterally, no dysarthria or aphasia, sensation in tact to soft touch bilaterally, no visual changes, no facial droop SKIN: Warm, dry, no laceration, no petechiae, no rashes or lesions. Scores NIH Stroke Scale Level of Conciousness: Alert, keenly responsive Ask month/age: Answers one question correctly, intubated follow commands Open/close eyes, close hand: Performs both tasks correctly Best gaze horizontal: Normal Visual marshall: No visual loss Facial palsy: Normal symetrical movement Left arm drift: No drift for full 10 sec Right arm drift: No drift for full 10 sec Left leg drift: No drift for full 5 sec Right leg drift: No drift for full 5 sec Limb ataxia: Present in two limbs Sensory on face/arms/legs: Normal, no sensory loss Best language: No aphasia, normal Dysarthria: Normal Extinction or inattention: No abnormality Total NIH Stroke scale score: 3 Course Orders Ordered: ED Orders 07/10/25 15:[address] angio head and neck Stat COVID19 -Nasal RAPID Stat EKG-12 Lead Stat 07/10/25 15:55 Complete Blood Count AUTO DIFF Stat Comprehensive Metabolic Panel Stat Ethanol (ETOH) Stat PTT Partial Thromboplastin Crow Stat Prothrombin Time INR Stat Troponin & CK Cardiac Panel Stat 07/10/25 18:35 Urinalysis and Microscopic Stat Urine Drug Screen, Rapid Stat Acetaminophen (Acetaminophen 325 Mg Tablet) 650 mg PO Q6H PRN PRN Reason: Fever/Mild Pain (1-3) Aspirin (Aspirin Ec 81 Mg Tablet) 81 mg PO DAILY [facility] Atorvastatin Calcium (Atorvastatin 20 Mg Tablet) 80 mg PO BEDTIME [facility] Clopidogrel Bisulfate (Clopidogrel 75 Mg Tablet) 75 mg PO DAILY [facility] Heparin Sodium (Porcine) (Heparin 5,000 Unit/Ml Vial) 5,000 unit SUBCUT BID [facility] Sodium Chloride (Normal Saline 0.45%) 1,000 mls @ 75 mls/hr IV CONT [facility] Naloxone HCl (Naloxone 0.4 Mg/Ml Vial) 0.2 mg IV Q2MIN PRN PRN Reason: Opiate Reversal Brimonidine-Timolol [Combigan] 0.2-0.5 % Drops 1 drop EYE-BOTH BID [facility] Estrogens- Methyltestosterone 0 .625-1.25 Mg Tab 1 tab PO DAILY [facility] Quinine Sulfate 324 (Mg Capsule) 324 mg PO BEDTIME PRN PRN Reason: cramps Discontinued Medications Aspirin (Aspirin 81 Mg Chew Tab) 324 mg PO NOW ONE Stop: 07/10/25 17:27 Vital Signs Vital signs: Vital Signs - 8 hr 07/10/25 15:49 07/10/25 16:03 07/10/25 16:24 Temperature 97.8 F Pulse Rate 58 L 56 L 52 L Respiratory Rate 16 18 19 Blood Pressure 131/75 Pulse Oximetry 100 94 95 Oxygen Delivery Method Room Air Room Air 07/10/25 16:24 07/10/25 16:30 07/10/25 16:30 Temperature Pulse Rate 51 L Respiratory Rate 23 Blood Pressure 129/58 L 122/58 L Pulse Oximetry 96 Oxygen Delivery Method Room Air MDM - Neuro Symptoms/Deficit Lab Data 07/10/25 15:55 07/10/25 15:55 Labs: Lab Results 07/10/25 07/10/25 Range/Units 15:55 15:56 WBC 7.2 (4.5-11.0) X10^3/uL RBC 4.28 (4.0-5.2) X10^6/uL Hgb 13.3 (12.0-16.0) g/dL Hct 38.8 (36-46) % MCV 90.6 (80-100) fL MCH 31.1 (26-34) PG MCHC 34.4 (30-36) % RDW 14.1 (11.6-14.8) % Plt Count 225 (150-400) X10^3/uL Neut % (Auto) 67.8 (50-75) % Lymph % (Auto) 17.3 L (25-40) % Pitt % (Auto) 10.3 (3-14) % Eos % (Auto) 3.9 (2-4) % Baso % (Auto) 0.7 (0-2) % Neut # (Auto) 4900 (3417-9542) /uL Lymph # (Auto) 1200 (6347-5456) /uL Pitt # (Auto) 700 (0-900) /uL Eos # (Auto) 300 (0-450) /uL Baso # (Auto) 0 (0-100) /uL PT 11.3 (9.4-12.5) SECONDS INR 1.0 (0.9-1.3) APTT 28 (25.1-36.5) SECONDS Sodium 139 (137-145) mmol/L Potassium 4.1 (3.4-5.1) mmol/L Chloride 106 (98-107) mmol/L Carbon Dioxide 25 (22-32) mmol/L BUN 18 H (7-17) mg/dL Creatinine 0.82 (0.52-1.04) mg/dL Estimated GFR > 60 (>60) mL/min BUN/Creatinine Ratio 22.0 (6-22) Glucose 86 (70-99) mg/dL POC Whole Bld Glucose 88 (70-99) mg/dL Hemoglobin A1c 5.7 (4.0-6.0) % Calcium 9.1 (8.4-10.2) mg/dL Total Bilirubin 0.5 (0.2-1.3) mg/dL AST 31 (14-36) IU/L ALT 24 (<35) IU/L Alkaline Phosphatase 71 (38-126) U/L Total Creatine Kinase 71 (30-135) U/L Troponin I < 0.012 (0.01-0.034) ng/mL Total Protein 7.3 (6.3-8.2) g/dL Albumin 4.5 (3.5-5.0) g/dL Globulin 2.8 (1.7-4.1) g/dL Albumin/Globulin Ratio 1.6 (1.0-2.8) Triglycerides 111 (35-150) mg/dL Cholesterol 188 (140-199) mg/dL LDL Cholesterol, Calc 122 H (<100) mg/dL HDL Cholesterol 44 (40-60) mg/dL Ethyl Alcohol < 10 (<10) mg/dL Point of Care Testing Glucose POC [address] scan - head: Radiologist's Impression: PROCEDURE: CT STROKE INDICATIONS: numbness weakness TECHNIQUE: Noncontrast 4.5 mm thick angled axial sections acquired from the foramen magnum to the vertex, with coronal reformats. For radiation dose reduction, the following was used: automated exposure control, adjustment of mA and/or kV according to patient size. COMPARISON: MR, MR HEAD/BRAIN WO CON, 05/18/2023, 14:55. [facility], CT, CT ANGIO HEAD AND NECK, 05/18/2023, 13:20. CT, CT HEAD/BRAIN WO CON, 05/18/2023, 13:20. FINDINGS: Image quality: Diagnostic. CSF spaces: Basal cisterns are patent. No extra-axial fluid collections. The ventricles are symmetric in size and shape. Brain: No intracranial bleeds or mass effect. There is cerebral volume loss, with resultant ventricular and sulcal prominence. There are periventricular and deep white matter chronic small vessel ischemic changes. There is intracranial internal carotid artery atherosclerosis. Skull and face: Calvarium and visualized facial bones appear intact, without suspicious lesions. Sinuses: Visualized sinuses and mastoids are clear. IMPRESSION: 1. No acute intracranial process. 2. Mild to moderate atrophy and chronic microvascular ischemic changes. The above findings were discussed with Dr. Nicky Jones on 07/10/2025 at 4:07 p.m. This study fulfills neurological imaging criteria for inclusion or exclusion of acute stroke therapies based on available published neurological guidelines. Dictated by: Maddy Abarca M.D. on 07/10/2025 at 16:07 CTA - brain/neck: Radiologist's Impression: PROCEDURE: CT ANGIO HEAD AND NECK INDICATIONS: numbness weakness TECHNIQUE: After the administration of intravenous contrast, 1 mm thick sections acquired from the aortic arch through the [place] of [place]. 3-dimensional fscplwf-pfrzhbyku-vwhqyktetl (MIP) and/or volume rendering reformats were acquired of the central intracranial vasculature and neck separately. For radiation dose reduction, the following was used: automated exposure control, adjustment of mA and/or kV according to patient size. COMPARISON: [facility], CT, CT STROKE, 07/10/2025, 15:53. [facility], CT, CT ANGIO HEAD AND NECK, 05/18/2023, 13:20. FINDINGS: Image quality: Diagnostic. Cerebral CT Angiogram: Internal carotid arteries: No acute findings. Intracranial ICA are patent with no significant stenosis. No occlusion. No aneurysm. Anterior cerebral arteries: Unremarkable. No significant stenosis. No occlusion. No aneurysm. Middle cerebral arteries: Unremarkable. No significant stenosis. No occlusion. No aneurysm. Posterior cerebral arteries: Unremarkable. No significant stenosis. No occlusion. No aneurysm. Basilar artery: Unremarkable. No significant stenosis. No occlusion. No aneurysm. Vertebral arteries: Minimal left vertebral artery dominance. Dural venous sinuses: Unremarkable given phase of enhancement. Other: Arterial phase appearance of the brain parenchyma is unremarkable. Neck CT Angiogram: Internal carotid arteries: Unremarkable. No significant stenosis. No dissection or occlusion. Common carotid arteries: Unremarkable. No significant stenosis. No dissection or occlusion. External carotid arteries: Unremarkable. No occlusion. Vertebral arteries: Unremarkable. No significant stenosis. No dissection or occlusion. Aortic Arch and Mediastinum: Partially visualized aortic arch unremarkable without evidence of aneurysm. Origins of the great vessels unremarkable. Other: Arterial phase soft tissues of the neck and chest are unremarkable. IMPRESSION: No significant intracranial arterial abnormality is seen. No significant abnormality is seen within the arteries of the neck. Any quantitative measurements of stenosis were performed using NASCET criteria. Dictated by: Maddy Abarca M.D. on 07/10/2025 at 16:47 Approved by: Maddy Abarca M.D. on 07/10/2025 at 16:49 ECG Data Attestation: I personally reviewed and interpreted this ECG as follows: MDM Narrative Medical decision making narrative: MDM CC: Numbness Complicating co-morbidities: Glaucoma Data collected from: Patient Medical records reviewed: Previous admission in 2022 for something so Differential considered: TIA CVA paresthesia intracranial hemorrhage Exam documented above, pertinent findings include: Alert pleasant well- appearing 71-year-old female. She does have bilateral ataxia gemmnf-ev-[id number]. She is slightly confused on the month, but says it is July which it is close. No other deficits no facial droop no significant weakness Lab Test results independently reviewed as above. Pertinent findings: CBC no leukocytosis no anemia Electrolytes within normal limits glucose 86 no BRYAN Bilirubin liver enzymes no abnormalities Troponin is negative Independently reviewed EKG as above Sinus rhythm no arrhythmia Imaging studies independently reviewed: Head CT noncontrast no acute intracranial hemorrhage, xwfe-am-fpnziwaq atrophy and chronic microvascular ischemic changes CT angio no large vessel occlusion Consultations: Dr. Healy accepts to observation Treatments: Aspirin Re-evaluations: Patient reports that the tingling and numbness in her left side of her body has improved but she still some ataxia. She says that is maybe due to her vision but she does not have glasses with her. Discussion: 79-year-old female presenting today as a code stroke. She has a low NIH no indication for thrombolytics. She is given aspirin she also has a improvement of her symptoms. She does have some ataxia difficult to tell if this is from ongoing vision problems or new stroke problems. Head CT CT angio were negative blood work is overall reassuring. Accepted to observation Discharge Plan Departure Patient Disposition: Admitted as Observation Clinical Impression: Brain TIA Admit Date/Time: 07/10/25 17:59 Admit Provider: Simón Healy
[2025-07-10 16:06] LABS: Add Manual Diff / Slide Review NO; Hematocrit 38.8 % (36-46); Hemoglobin 13.3 g/dL (12.0-16.0); Lymphocytes Absolute Auto 1200 /uL (1100-4500); Mean Corpuscular HGB Conc 34.4 % (30-36); Mean Corpuscular Hemoglobin 31.1 PG (26-34); Mean Corpuscular Volume 90.6 fL (80-100); Platelet Count 225 X10^3/uL (150-400)
[2025-07-10 16:19] LABS: INR 1.0 (0.9-1.3); Prothrombin Time 11.3 SECONDS (9.4-12.5)
[2025-07-10 16:22] LABS: PTT Partial Thromboplastin Tim 28 SECONDS (25.1-36.5)
[2025-07-10 16:24] LABS: Alanine Aminotransferase 24 IU/L (<35); Albumin 4.5 g/dL (3.5-5.0); Albumin Globulin Ratio 1.6 (1.0-2.8); Alkaline Phosphatase 71 U/L (38-126); Blood Urea Nitrogen 18 mg/dL (7-17); Calcium 9.1 mg/dL (8.4-10.2); Carbon Dioxide 25 mmol/L (22-32); Chloride 106 mmol/L (98-107); Creatine Kinase 71 U/L (30-135); Estimated Glomerular Filt Rate > 60 mL/min (>60); Ethanol (ETOH) < 10 mg/dL (<10); Globulin 2.8 g/dL (1.7-4.1); Glucose 86 mg/dL (70-99); HEMOLYSIS < 15 (0-50); Potassium 4.1 mmol/L (3.4-5.1); Sodium 139 mmol/L (137-145); Total Protein 7.3 g/dL (6.3-8.2)
[2025-07-10 16:35] LABS: Troponin I < 0.012 ng/mL (0.01-0.034)
--- NOTE | 2025-07-10 18:25 | DI.MRI.S_ITS ---
PROCEDURE: MR HEAD/BRAIN WO CON INDICATIONS: Stroke-like symptoms TECHNIQUE: Non-contrast axial T1 spin echo, axial T2 fast spin echo, sagittal and axial FLAIR, coronal T2 fast spin echo, axial gradient echo, axial diffusion and ADC through the brain. COMPARISON: MR, MR HEAD/BRAIN WO CON, 05/18/2023, 14:55. [facility], CT, CT STROKE, 07/10/2025, 15:53. FINDINGS: Image quality: Excellent. CSF spaces: Ventricles appear symmetric in size and shape. Basal cisterns are patent. No extra-axial fluid collections. Brain: No intracranial bleeds or mass effects. There is cerebral volume loss for age. There are periventricular and deep white matter chronic small vessel ischemic changes. Brainstem appears normal. Diffusion-weighted images show no acute infarct. No chronic ischemic insults. Normal intravascular flow voids are present. Skull and face: Calvarial bone marrow is normal in signal. Orbits are normal. Sinuses: Sinuses and mastoids are clear. IMPRESSION: 1. No acute process. No recent infarct. 2. Volume loss and small vessel ischemic disease. Dictated by: Ricardo Castillo M.D. on 07/11/2025 at 10:52 Approved by: Ricardo Castillo M.D. on 07/11/2025 at 10:54
--- NOTE | 2025-07-10 18:26 | DI.ECHO.S_ITS ---
[place] [facility] : : [address] : : [place] : : [id number] : : Phone: [phone] Echocardiogram Report + + :Name: ELIAZAR SERRANO V Study Date: 07/11/2025 Height: 66 in : :[facility] ReadingLocation: Weight: 142 lb : : Gender: Female BSA: 1.7 m2 : :: 1945 Age: 79 yrs BP: 121/50 mmHg: :Reason For Study: STROKE-LIKE SYMPTOMS : :Ordering Physician: TERE : :DASHAWN Performed By: Hayley Pandey : :Referring: DASHAWN CARRANZA : + + Interpretation Summary - Left ventricular contractility is normal. Estimated ejection fraction is greater than 60% with no segmental wall motion abnormalities. No LVH. Normal diastolic function. - The right ventricular contractility is normal. - All cardiac chambers are of normal size. - No significant valvular abnormalities. - No obvious intracardiac shunts. - No obvious intracardiac masses nor thrombi. - No hemodynamically significant pericardial effusion. - Low right-sided filling pressures. Conclusion: Normal biventricular function with no significant valvular abnormalities. When compared with previous echocardiogram, no significant changes have occurred. Procedure: A two-dimensional transthoracic echocardiogram with color flow and Doppler was performed. The study quality was technically adequate. Comparison is made with the echocardiogram of 05/19/2023. The patient was in sinus bradycardia with heart rates between 47-55 bpm during the exam. Left Ventricle: The left ventricle is normal in size and wall thickness. The ejection fraction is estimated to be 60-65%. Normal diastolic function. Right Ventricle: The right ventricle is normal in size and function. Atria: The left atrial size is normal. Right atrial size is normal. There is no Doppler evidence for an interatrial shunt. Mitral Valve: The mitral valve leaflets appear mildly thickened. There is mild mitral annular calcification. There is trace mitral regurgitation. Aortic Valve: The aortic valve is trileaflet. The aortic valve opens well. There is no aortic valve stenosis. No aortic regurgitation is present. Tricuspid Valve: The tricuspid valve leaflets are thin and pliable. There is trace tricuspid regurgitation. The right ventricular systolic pressure is estimated to be at least 13 mmHg based on an estimated right atrial pressure of 3 mm Hg. Pulmonic Valve: The pulmonic valve leaflets are thin and pliable; valve motion is normal. There is mild pulmonic regurgitation. Great Vessels: The aortic root is normal size. The dimensions of the ascending aorta are normal. The IVC is of normal diameter and collapses greater than 50% with a sniff. This suggests a low right atrial pressure of 3 mm Hg. Pericardium/ Pleura There is no pericardial effusion. There is no pleural effusion. MMode/2D Measurements & Calculations LVIDd: 4.4 cm LVOT diam: 2.0 cm LVIDs: 2.8 cm Ao root diam: 2.8 cm FS: 36.0 % asc Aorta Diam: 2.7 cm EPSS: 0.71 cm Ao Arch Diam (Prox Trans): 2.9 cm IVSd: 0.92 cm LVPWd: 0.97 cm LV humphreys. diameter/BSA (cm/m^2): 2.5 LV sys. diameter/BSA (cm/m^2): 1.6 LA A2 area: 17.3 cm2 RA long axis: 5.1 cm LA A4 area: 16.9 cm2 RA area: 15.0 cm2 LA length (vol): 5.0 cm RA vol: 37.3 ml LA vol: 49.3 ml RA : 21.6 ml/m2 LA vol index: 28.5 ml/m2 IVC diam: 1.1 cm RVD1 (basal): 3.5 cm RVD2 (mid): 3.5 cm TAPSE: 2.3 cm Doppler Measurements & Calculations Ao V2 max: 118.1 cm/sec LVOT Max Isac: 71.6 cm/sec Ao V2 mean: 83.6 cm/sec LV V1 max P.1 mmHg Ao max P.6 mmHg LV V1 VTI: 18.3 cm Ao mean P.1 mmHg MELISSA(I,D): 1.7 cm2 Ao V2 VTI: 32.7 cm MELISSA(V,D): 1.8 cm2 sev ratio: 0.56 MELISSA indexed to BSA (cm^2/m^2): 0.97 MV E max isac: 111.0 cm/sec TR max isac: 161.9 cm/sec MV A max isac: 98.7 cm/sec TR max P.5 mmHg MV E/A: 1.1 PA V2 max: 75.5 cm/sec Med Peak E' Isac: 5.6 cm/sec PA V2 mean: 54.8 cm/sec E/E' med: 19.7 PA mean P.3 mmHg Lat Peak E' Isac: 6.8 cm/sec PA pr(Accel): 18.0 mmHg E/E' lat: 16.4 E/e' average: 18.1 MV dec time: 0.19 sec SV(LVOT): 54.9 ml Reading Physician:REGGIE
--- NOTE | 2025-07-10 18:26 | P.HP_ITS ---
History of Present Illness History of Present Illness Date Patient Seen: 07/10/25 Chief complaint: Sent by PCP suspects stroke or TIA Narrative: Chief complaint: Slight balance service and paresthesia stroke-like symptoms History of present illness: 79-year-old female history of TIA approximately 2 years ago with negative workup here at [facility] noted tingling numbness and dizziness while riding in an elevator this afternoon came to the emergency room for evaluation. She had no loss of consciousness paresis visual field changes Workup emergency room negative for CT angio of the head cardiac arrhythmia hemogram and comprehensive metabolic profile unremarkable Review of systems: No weight loss or weight gain No rigors fever or chill Chest pain palpitations shortness for breath No nausea vomiting diarrhea No urinary symptoms Physical exam: Very fit-appearing elderly female HEENT unremarkable Neck no JVD No labored respirations Abdomen nondistended Extremities no edema Neurologic exam: NIH score 0 Cranial nerves intact Alert and oriented x4 No motor deficits No sensory deficit Slight dysmetria left hand [id number] compared to right For objective laboratory and imaging please see the bottom of the note: Assessment and plan: Stroke like to a TIA like symptoms with negative workup thus far with negative CT and CT angio head * Placed in observation * Dual antiplatelet * High-intensity statin * Echocardiogram * MRI DVT prophylaxis: * Subcutaneous heparin Code status: * Full code blue Time based billing: * 55 minutes were involved evaluation of this patient including [id number] evaluation physical examination review of records review of objective laboratory and imaging findings discussion with emergency provider [facility] Medical History Migraine headache with aura Hypothyroidism Hypertension Transient ischemic attack Vision disorder Eczema Stroke Fractures Foot pain Mumps Measles Chicken pox Skin cancer Glaucoma Surgical History Anesthesia H/O: hysterectomy Family History Father Colon cancer Prostate cancer Mother Lung cancer Diabetes mellitus Stroke Sister Stroke Social History household members: spouse Smoking Status: Never smoker alcohol intake: current Meds Home Medications and Allergies Home Medications ?Medication ?Instructions ?Recorded ?Confirmed ?Type brimonidine 0.2 %-timolol 0.5 % 1 drp EYE-BOTH BID 06/02/23 History eye drops (Combigan) esterified 1 tab PO DAILY 06/24/2205/13 History estrogens-methyltestosterone 0.625 mg-1.25 mg tablet quinine sulfate 324 mg capsule 324 mg PO ONCE PM PRN c ramps 05/18/23 06/02/23 History Allergies Allergy/AdvReac Type Severity Reaction Status Date / Time No Known Drug Allergies Allergy Verified 06/02/23 10:44 Exam Vital Signs (past 8 hours): - 07/10/25 15:49 07/10/25 16:03 07/10/25 16:24 Temperature 97.8 F Pulse Rate 58 L 56 L 52 L Respiratory Rate 16 18 19 Blood Pressure 131/75 Pulse Oximetry 100 94 95 Oxygen Delivery Method Room Air Room Air 07/10/25 16:24 07/10/25 16:30 07/10/25 16:30 Temperature Pulse Rate 51 L Respiratory Rate 23 Blood Pressure 129/58 L 122/58 L Pulse Oximetry 96 Oxygen Delivery Method Room Air Oxygen Delivery Method Room Air Objective Labs 07/10/25 15:55 07/10/25 15:55 Labs: Laboratory Results - last 24 hr 07/10/25 07/10/25 15:55 15:56 WBC 7.2 RBC 4.28 Hgb 13.3 Hct 38.8 MCV 90.6 MCH 31.1 MCHC 34.4 RDW 14.1 Plt Count 225 Neut % (Auto) 67.8 Lymph % (Auto) 17.3 L Pender % (Auto) 10.3 Eos % (Auto) 3.9 Baso % (Auto) 0.7 Neut # (Auto) 4900 Lymph # (Auto) 1200 Pender # (Auto) 700 Eos # (Auto) 300 Baso # (Auto) 0 PT 11.3 INR 1.0 APTT 28 Sodium 139 Potassium 4.1 Chloride 106 Carbon Dioxide 25 BUN 18 H Creatinine 0.82 Estimated GFR > 60 BUN/Creatinine Ratio 22.0 Glucose 86 POC Whole Bld Glucose 88 Calcium 9.1 Total Bilirubin 0.5 AST 31 ALT 24 Alkaline Phosphatase 71 Total Creatine Kinase 71 Troponin I < 0.012 Total Protein 7.3 Albumin 4.5 Globulin 2.8 Albumin/Globulin Ratio 1.6 Ethyl Alcohol < 10 Assessment & Plan Time-Based Coding :: [TOTAL MINUTES] spent with patient and on the chart (including review of chart, obtaining history, exam, reviewing outside data, placing orders, documenting exam and treatment plan, and counseling patient) on [DATE].
[2025-07-10 18:41] LABS: Appearance Urine UA CLEAR; Bilirubin Urine UA NEGATIVE (NEGATIVE); Color Urine UA YELLOW; Glucose Urine UA NEGATIVE (Negative); Ketones Urine UA NEGATIVE (NEGATIVE); Leukocyte Esterase Urine UA NEGATIVE (NEGATIVE); Nitrite Urine UA NEGATIVE (Negative); Occult Blood Urine UA TRACE-INTACT (Negative); Protein Urine UA NEGATIVE (Negative); Specific Gravity Urine UA 1.010 (1.000-1.035); Urobilinogen Urine UA 0.2 E.U./dL (0.2)
[2025-07-10 18:43] LABS: pH Urine UA 6.0 (4.5-8.0)
[2025-07-10 18:45] LABS: Cholesterol 188 mg/dL (140-199); HDL Cholesterol 44 mg/dL (40-60); Triglycerides 111 mg/dL (35-150)
[2025-07-10 18:47] LABS: UR Morphine/Opiate cutoff 300 Negative (Negative); Ur Specific Gravity Normal (Normal); Urine MDMA Negative (Negative); Urine Methamphetamines Negative (Negative); Urine Tetrahydrocannabinol Negative (Negative); Urine Tricyclic Antidepressant Negative (Negative)
[2025-07-10 18:48] LABS: Hemoglobin A1C% w Est Avg Glu 5.7 % (4.0-6.0)
[2025-07-10 18:48] LABS: Culture Indicated Urine Cult Not Indicated
[2025-07-10 19:14] LABS: Thyroid Stimulating Hormone 3.34 uIU/mL (0.47-4.68)
[2025-07-10 19:22] LABS: COVID19 -Nasal RAPID Negative (Negative)
[2025-07-10] MEDS: HEPARIN 5,000 UNIT/ML VIAL 5000 UNIT SUBCUT (21:34)
[2025-07-10] MEDS: CLOPIDOGREL 75 MG TABLET PO (21:34)
[2025-07-10] MEDS: ASPIRIN EC 81 MG TABLET PO (21:34)
[2025-07-10] MEDS: ACETAMINOPHEN 325 MG TABLET 650 MG PO (21:34)
[2025-07-10] MEDS: ATORVASTATIN 20 MG TABLET 80 MG PO (21:35)
[2025-07-10] MEDS: SODIUM CHLORIDE 0.45% 1,000 ML 75 ML IV (21:40)
[2025-07-10] MEDS: BACLOFEN 10 MG TABLET 5 MG PO (22:57)
[2025-07-11 03:00] VITALS: BP 121/50; PULSE 55; RESP 18; TEMP 36.3; O2SAT 96
[2025-07-11 08:00] VITALS: BP 122/51; PULSE 51; RESP 16; TEMP 36.2; O2SAT 92
[2025-07-11] MEDS: HEPARIN 5,000 UNIT/ML VIAL 5000 UNIT SUBCUT (09:54)
[2025-07-11] MEDS: ASPIRIN EC 81 MG TABLET PO (09:54)
[2025-07-11] MEDS: CLOPIDOGREL 75 MG TABLET PO (09:54)
--- NOTE | 2025-07-11 09:55 | OT.IP.EVAL ---
Past Medical History (Last Reviewed 07/10/25 @ 15:55 by Nicky Jones DO) Chicken pox Eczema Foot pain Fractures Glaucoma Hypertension Hypothyroidism Measles Migraine headache with aura Mumps Skin cancer Stroke Transient ischemic attack Vision disorder Surgical History (Last Reviewed 07/10/25 @ 15:55 by Nicky Jones DO) Anesthesia H/O: hysterectomy Occupational Therapy Inpatient Evaluation/Re-Eval M1 PT/OT-IP Prior Functional Status Start: 07/11/25 09:59 Freq: NEEDED Status: Active Protocol: Document 07/11/25 10:00 [facility] (Rec: 07/11/25 10:23 [facility] Desktop) Medical Review Prior Functional Status Medical History Yes Reviewed Communication I Mobility and Gait I Activities of Daily I with all ADL, IADL, and takes care for her Living and IADL's who has CA. Social History Household Members spouse Living Arrangements House Number of Floors ( One Floor Floors) Number of Stairs To 2 small steps with frig on the left side or use of door Enter/Railing? knob to help. Home Environment Standard Height Toilet,Walk in Shower,Tub/Shower Home Equipment Front Wheel Walker,Straight Cane,Manual Wheelchair, Shower Seat with Backrest Additional Social Pt states does not sleep for more than 2 hours at a History Comment time. M2 OT-IP Current Condition Start: 07/11/25 09:59 Freq: Status: Active Protocol: Document 07/11/25 10:00 [facility] (Rec: 07/11/25 10:23 [facility] Desktop) Occupational Therapy Current Condition Current Condition Evaluation Date 07/11/25 Treatment Diagnosis TIA/CVA R/o Diagnosis Onset Date 07/10/25 M3 OT- IP Subjective and Pain Start: 07/11/25 09:59 Freq: Status: Active Protocol: Document 07/11/25 10:00 [facility] (Rec: 07/11/25 10:23 [facility] Desktop) OT- Subjective Occupational Therapy Visit Type Type Initial Evaluation Visit Start Time 09:45 Visit Stop Time 09:55 Occupational Therapy Visit Comments Patient Comments Short OT eval due to nurse about to give pt Ativan prior to getting MRI. Patient/Caregiver TO go home. Goals OT Pain Assessment Pain When Pain Assessed At Rest Pain Present Pain Present Pain Reported M4 OT- IP ADL's Start: 07/11/25 09:59 Freq: Status: Active Protocol: Document 07/11/25 10:00 [facility] (Rec: 07/11/25 10:23 [facility] Desktop) OT [id number] Comments OT Self-Feeding Not at meal time. Comments OT ADL-Grooming Comments OT Grooming Comments Not observed. OT ADL-Oral Care Comments Oral Care Comments NOt observed. OT ADL-Dressing General Eval Lower Body Dressing Standby Assistance Ability Comments OT Dressing Comments Pt favors for right hand to todd/doff socks but still able to assist with left hand, left hand movements a little ataxic. OT ADL-Toileting Comments OT Toileting Pt states has been getting in and out the toilet on her Comments own. OT ADL-Bathing Comments OT Bathing Comments At this time pt would benefit from sitting for showering needs. Pt states takes baths at home. M5 OT- IP IADL's Start: 07/11/25 09:59 Freq: Status: Active Protocol: Document 07/11/25 10:00 [facility] (Rec: 07/11/25 10:23 [facility] Desktop) OT-Instrumental Activities of Daily Living Medication Management Medication Pt a bit forgetful at this time. Management Comments Money Management Money Management Pt having a little trouble with calculations at this Comments time. Meal Preparation Meal Preparation Pt will benefit from assist. 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 Comments Driving Driving Concerns Identified Regarding Safety M6 OT- IP Functional Cognition Start: 07/11/25 09:59 Freq: Status: Active Protocol: Document 07/11/25 10:00 [facility] (Rec: 07/11/25 10:23 [facility] Desktop) Cognitive Factors Limiting Selfcare Function Cognitive Ability Level of Alertness Alert Patient Orientation Name,Place,Situation Attention Span Capable of Focused Attention,Capable of Sustained Ability Attention Ability to Follow Able to Follow One Step Commands Commands Cognitive Comments Cognitive Assessment Pt a little forgetful and needing increased time to Comments states her home set up. Pt also having difficulty to name animals and spell the word world backwards. Not able to complete SLUMS as nurse just able to get pt ready for MRI, Ativan given. Therefore OT will not be able to accurately assess her cognition afterwards and may have to wait til much later or tomorrow. Prior to having Ativan, noted pt increased time to process and problem solve. OT- Vision and Hearing OT- Hearing Assessment OT- Hearing WFL Assessment OT- Vision Assessment Visual Acuity Glasses All The Time Vision Assessment TO assess. Comments M7 OT- IP Mobility and Balance Start: 07/11/25 09:59 Freq: Status: Active Protocol: Document 07/11/25 10:00 [facility] (Rec: 07/11/25 10:23 [facility] Desktop) OT- Bed Mobility Assessment Supine to Sit Supine to Sit Assist Standby Assistance Sit to Supine Sit to Supine Assist Standby Assistance OT-Transfer Assessment Comments Mobility Comments Increased time to get to the edge of the bed. OT- Balance Assessment Sitting Balance and Reactions Static Sitting Good Balance Ability Dynamic Sitting Good Balance Ability M8 OT- IP Objective Assessments Start: 07/11/25 09:59 Freq: Status: Active Protocol: Document 07/11/25 10:00 [facility] (Rec: 07/11/25 10:23 [facility] Desktop) OT Gross Range of Motion Upper Extremity Range of Motion Assessment Within Functional Limits OT Strength Comments Strength Comments RUE 4-/5 to 4/5 to 4-/5 LUE 4-/5 to 4/5 OT- Coordination Assessment Upper Extremity Finger to Nose Test Left UE Impaired Comments Coordination Pt having difficulty with finger to thumb opposition Comments with left hand. OT Sensation Assessment Comments Summary Comments Increased time with diadochokinesis. M9 OT- IP Assessment and Plan Start: 07/11/25 09:59 Freq: Status: Active Protocol: Document 07/11/25 10:00 [facility] (Rec: 07/11/25 10:23 [facility] Desktop) OT Summary Assessment and Plan Potential Rehabilitation Excellent Potential Analytic Complexity Moderate at Evaluation Summary OT Impairments Strength,Balance,Coordination,Sensation,Functional Cognition,Functional Mobility,Grooming,Dressing, Toileting,Bathing,Toilet Transfers,Shower Transfers Progress Towards Slow Progress due to Medical Issues Goals Assessment Summary Pt MOD complexity and able to initiate OT eval but nursing having to give pt Ativan for MRI. Prior to being medicated, pt having trouble thinking and slow to name 15 animals in one minute and for being able to spell the word, world backwards. Pt admits that she is having difficulty thinking as not having slept well last night. However per pt does not sleep for more than 2hours at a time as take care of her who had CA. Pt usually does not have to physically assist him but at time does so. Not able to fully assess pt as pt just about to go to MRI. At this time pt seems to have ataxia with left arm, needing increased time for processing and problem solving. Pt will benefit from assist at home, however pt is her 's caregiver. Continue to assess when able. Goals Self-Feeding Goal Independent Grooming Goal Independent Dressing Goal Independent Toileting Goal Independent Bathing Goal Independent Toilet Transfer Goal Independent Shower Transfer Goal Independent Days to Meet Goals 7 Frequency of Treatment Other frequency 5x/week Treatment Plan OT Treatment Plan ADL Training,Functional Cognition Training,Patient/ Family Education,Discharge Planning Other Treatment [place] Making Part B Recommendations and 9 hole peg test Next Treatment Focus Discharge Recommendations OT Discharge Home with 24/7 Assist Available,Home Health Recommendations Other Discharge Recommendations may change pending further assessment. Recommendations Home Equipment Needs To be determined Transportation Needs Private Vehicle at Discharge
--- NOTE | 2025-07-11 10:13 | SLP.IPNOTE ---
Chart reviewed. Evaluation attempted around 10:05, though pt at MRI. [employer] SALESPERSON to attempt evaluation later in day as schedule allows.
--- NOTE | 2025-07-11 11:00 | PT.IIE ---
Surgical History (Last Reviewed 07/10/25 @ 15:55 by Nicky Jones DO) Anesthesia H/O: hysterectomy Medical History (Last Reviewed 07/10/25 @ 15:55 by Nicky Jones DO) Chicken pox Eczema Foot pain Fractures Glaucoma Hypertension Hypothyroidism Measles Migraine headache with aura Mumps Skin cancer Stroke Transient ischemic attack Vision disorder Physical Therapy Inpatient Evaluation/Re-Eval M1 PT/OT-IP Prior Functional Status Start: 07/11/25 12:45 Freq: NEEDED Status: Active Protocol: Document 07/11/25 11:00 [facility] (Rec: 07/11/25 13:02 [id number]) Medical Review Prior Functional Status Medical History Yes Reviewed Communication able to make needs known Mobility and Gait pt stated that she was independent with all mobilities and ambulation without AD Activities of Daily per OT note: I with all ADL, IADL, and takes care for Living and IADL's her who has CA. Social History Household Members spouse Living Arrangements House Number of Floors ( One Floor Floors) Number of Stairs To 2 steps without rails but has bilateral posts/pillars Enter/Railing? 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 who has CA History Comment pt has an adjustable bed pt stated that she does not take showers but bathes M2 PT-IP Current Condition Start: 07/11/25 12:45 Freq: NEEDED Status: Active Protocol: Document 07/11/25 11:00 [facility] (Rec: 07/11/25 13:02 [id number]) Physical Therapy Current Condition Current Condition Evaluation Date 07/11/25 Treatment Diagnosis TIA; difficulty in walking Onset Date 07/10/25 M3 PT-IP Subjective Start: 07/11/25 12:45 Freq: NEEDED Status: Active Protocol: Document 07/11/25 11:00 [facility] (Rec: 07/11/25 13:02 [id number]) Subjective Physical Therapy Visit Type Type Initial Evaluation Visit Start Time 11:00 Visit Stop Time 11:40 Number of WIG DRESSER Visits 0 Physical Therapy Visit Comments Patient Comments agreeable to do PT M4 PT-IP Mobility and Gait Start: 07/11/25 12:45 Freq: NEEDED Status: Active Protocol: Document 07/11/25 11:00 [facility] (Rec: 07/11/25 13:02 AB [id number]) PT-Bed Mobility Assessment Supine to Sit Supine to Sit Standby Assistance Sit to Supine Sit to Supine Standby Assistance PT-Transfer Assessment Sit to and From Stand Sit to and from Standby Assistance,1 Person Assistance,Use of Upper Stand Extremities Equipment Transfer Assistive None,Gait Belt,Front Wheeled Walker Device Orthotic/Prosthetic No Devices or Brace: Transfers Transfer Destination Toilet Transfer Technique ambulated Transfer Ability Level of Assist Contact Guard Assistance,1 Person Assistance,Use of Upper Extremities Comments Mobility Comments pt in bed and agreeable to do PT. obtained PLOF and home set up. BP: 102/50. completed supine to sit SBA. BP checked: 122/53. sit to stand SBA and ambulated in room without AD CGA and cues. presents with unsteady guarded antalgic gait with increase lateral weight shifting to the R with increase time to rebalance to center. Assessed ambulation using SPC. educated pt on how to use SPC. pt ambulated in room using SPC ~ 40 ft SBA to CGA. presents with steadier gait and less antalgic gait. pt completed up/down step stool using SPC + wall CGA. pt ambulate back to EOB using SPC SBA to CGA. pt requested to use the toilet. ambulated to the toilet without AD CGA and cues for safety. Left to use the toilet and instructed to ask for assistance when ready. Gait Assessment Gait Gait Assistance Contact Guard Assist Required: Distance (Feet) 40 Able to Maintain Yes Weight Bearing Status During Gait Assistive Devices Assistive Device None,Gait Belt,Straight Cane Orthotic/Prosthetic No Devices or Brace: Gait Deviations General Gait Pattern Decreased Stride Length,Decreased Feet Clearance,Step- to Gait Factors Limiting Gait Function Factors Limiting Decreased Activity Tolerance,Decreased Strength, Gait Function Difficulty Following Directions,Incoordination,Pain, Poor Balance,Poor Safety Awareness Stair Climbing Assessment Evaluation Level of Assist On Contact Guard Assistance,1 Person Assistance Stairs Devices Stair Climbing Left Railing Assistive Devices Technique/Endurance Stair Climbing Ascend and Descend Direction Stair Climbing Step to Step Technique Number of Steps 1 Climbed Query Text: Stair Climbing Set # 2 Repetitions (reps) PT-Balance Assessment Sitting Balance and Reactions Static Sitting Normal Balance Ability Dynamic Sitting Good Balance Ability Standing Balance and Reactions Static Standing Fair Balance Ability Dynamic Standing Fair Balance Ability Device Used SPC M5 PT-IP Objective Assessments Start: 07/11/25 12:45 Freq: NEEDED Status: Active Protocol: Document 07/11/25 11:00 [facility] (Rec: 07/11/25 13:02 AB [id number]) Orientation Orientation/Cognition Level of Alertness Alert Orientation Name,Place,Situation Language Function No Deficits Noted Ability Safety Awareness Decreased Safety Awareness Memory Description Short Term Impaired Gross Range of Motion Lower Extremity ROM Assessment Within Functional Limits Strength Lower Extremity Strength Assessment Left Impaired Hip 3+/5 Knee 4-/5 Muscle Tone Muscle Tone WNL Yes M6 PT-IP Treatment Start: 07/11/25 12:45 Freq: NEEDED Status: Active Protocol: Document 07/11/25 11:00 [facility] (Rec: 07/11/25 13:02 AB [id number]) Physical Therapy Treatment Education Education Provided Precautions,Weight Bearing Status,Post-Op Packet,Safety M7 PT-IP Assessment and Plan Start: 07/11/25 12:45 Freq: NEEDED Status: Active Protocol: Document 07/11/25 11:00 [facility] (Rec: 07/11/25 13:02 AB [id number]) PT Summary Assessment and Plan Potential Rehabilitation Fair Potential Status of Condition Evolving at Evaluation Summary Impairments Strength,Balance,Coordination,Sensation,Tone,Cognition, Bed Mobility,Transfers,Gait,Activity Tolerance Assessment Summary pt is a 79 y/o F who is admitted for TIA. pt requiring CGA with ambulation without AD and presents with unsteady gait. Assess ambulation using SPC and requiring SBA to CGA and presents with steadier gait. Recommended use of AD and pt understood. pt will also require outpt PT. Goals Bed Mobility Goal Independent Transfer Goal Independent,Cane Gait Goal Independent,Cane Gait Distance 200 Other Goals up/down 2 steps using post/pillar SBA Days to Meet Goals 10 Frequency of Treatment Frequency Of Once a Day Treatment Treatment Plan Physical Therapy Bed Mobility Training,Transfer Training,Gait Training, Treatment Plan Therapeutic Exercise,Balance Retraining,Discharge Planning,Hot or Cold Pack,Neuromuscular Re-ed, Coordination Retraining,Manual Therapy Recommendations To Nursing Amount of Assist 1 Person Assist Needed Discharge Recommendations PT Discharge Home with Assistance,Outpatient PT Recommendations Transportation Needs Private Vehicle at Discharge - PT assist 1
[2025-07-11 12:00] VITALS: BP 127/70; PULSE 67; RESP 12; TEMP 36.4; O2SAT 99
--- NOTE | 2025-07-11 12:06 | CM.DANOTE ---
Initial DCP Assessment Visit Note Reviewed EMR and team rounds for pt's medical and status updates. Went to meet with pt f/f, however she was in the middle of working with PT at the time. Pt lives independently at baseline in her own home w/spouse. Her spouse has cancer and she is his primary cg. She has a friend who will be transporting her home this afternoon after she works with PT. No CM d/c needs are identified at this time. Payor: [facility] PCP: Alyssa Covarrubiasanigan Pt is a 79 year-old F who presented to the ED last evening with c/o sudden-onset left hand and foot tingling, but no other stroke-like symptoms. CT of the head did not show any abnormalities, and her symptoms resolved while she was still in the ED. Pt was provided aspirin the the ED, and the plan was made to admit to OBS for further monitoring, to work with therapies, and have an ECHO. The ECHO was unremarkable, and she was able to mobilize with PT with no concerns. Pt was then medically cleared for d/c back home. Discharge Planning/Care Management CM Discharge Assessment Start: 07/10/25 20:03 Freq: Status: Active Protocol: Document 07/11/25 12:04 DPL (Rec: 07/11/25 12:06 DPL [id number]) Discharge Planning Assessment Assigned Discharge [employer] Coordinator Insurance [facility] Advance Directives? Yes Advance Directives No: full code on File History Provided By Medical Record Expected Length of 1 Stay Prior Living House Arrangements Household Members spouse Type of Drives own vehicle transporation used prior to admit Independent with ADL Yes 's Is patient alert and Yes oriented? Caregiver for Yes: spouse w/cancer Another DME Already Rented / Bath Bench,Elevated Toilet Seat,FWW / Walker Owned Comment Patient arrives with syncope, chest pressure and was initially worked up to r/o stroke. Patient felt to have vertigo and sx improved and will discharge home today. Met w/patient briefly and she denied needs at this time. 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
--- NOTE | 2025-07-11 13:45 | ST.IPIE ---
Visit Care Team Role Provider Type Remberto Burns MD Primary Care Provider Physician Specialty: Cardiology Address: [address] [place] [address], [address], [place], [address] Email: [email or web address] Family Provider Advanced Transportation Economics Teacher Specialty: Family Practice Address: [address] [facility] [address], [place], [address] Email: [email or web address] Nicky Jones DO Emergency Provider Physician Referring Provider Specialty: Emergency Medicine Address: [address] [place] [address], [address] Email: [email or web address] Simón Healy MD Admit Provider Physician Attending Provider Specialty: Hospitalist Address: [address] [place] [address], [address] Fax: Email: [email or web address] Past Medical History (Last Reviewed 07/10/25 @ 15:55 by Nicky Jones DO) Chicken pox (Medical) Eczema (Medical) Foot pain (Medical) Fractures (Medical) Glaucoma (Medical) Hypertension (Medical) Hypothyroidism (Medical) Measles (Medical) Migraine headache with aura (Medical) Mumps (Medical) Skin cancer (Medical) Stroke (Medical) Transient ischemic attack (Medical) Vision disorder (Medical) ST IP Initial Evaluation Report 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 Simón Healy MD Reason for Referral CVA vs TIA Setting Assessment Location Acute Care Visit Type Note Type Initial evaluation Patient Information Identification Type Name Patient History Per H&P, 79-year-old female history of TIA approximately 2 years ago with negative workup here at [facility] noted tingling numbness and dizziness while riding in an elevator this afternoon came to the emergency room for evaluation. She had no loss of consciousness paresis visual field changes. Workup emergency room negative for CT angio of the head cardiac arrhythmia hemogram and comprehensive metabolic profile unremarkable. Clinical swallowing evaluation and cognitive-communication assessment completed to assess current function and inform POC. Education Level Bachelor's degree Occupation Status Retired Hearing Hearing Level Normal Vision Vision Status Not Impaired Subjective Patient Report Pt reported friends and family have noticed increased difficulty with auditory comprehension in conversation. Additionally, pt reported reduced attention during IADLs. Pt independent with all ADLs and IADLs at baseline. She is the primary caregiver for her . Mental Status Alert,Responsive,Cooperative Informal Assessment Receptive Language No Normal Receptive Language Following 3-step commands,Comprehension of conversation Impairment(s) Expressive Language Yes Normal Pragmatic Language Yes Normal Speech Normal Yes Cognition Normal No Cognitive Impairment Attention,Short-term memory,Executive functioning (s) Formal Assessment Standardized Test/ [facility] Mental Status (UMS) Screener Type Administration Complete Results The [facility] Mental Status (UMS) Examination was used to obtain information regarding the patient?s cognitive abilities. The SLUMS consists of ten questions that assess delayed recall, verbal fluency, comprehension, calculations, attention, working memory, and orientation. A scored is calculated from a possible 30 points. Scores fall in one of three ranges describing a patient?s level of impairment based upon level of education. Patients who have completed high school are expected to score slightly higher on this test than those who have not. For someone with a high school education, WNL is 27-30. The SLUMS was completed on this date. Subtest scores are as follows: Orientation: 3/3 Immediate Recall: 5/5 (not calculated in total score) Numeric Calculation: 1/3 Divergent Namin/3 (total of 17) Delayed Recall: 4/5 Attention/Registration with Digit Span: 2/2 Clock Drawing (Visuospatial & Executive Functionin/ 4 Geometric Figures: 2/2 Short Story (memory/recall): 4/8 With at least a high school education, a total score of 27/30 falls within the mild neurocognitive disorder range. Findings/Results Language Function Mildly impaired Cognitive Function Mildly impaired Findings Pt demonstrated mild cognitive-communication c/b mildly reduced auditory compression, attention, and executive functioning skills. She is at elevated risk of making critical errors with tasks such as medication management, sales agent financial report service, and completion of cell tuber hand, as well as everyday tasks that require adequate skills in the areas of attention, immediate and delayed memory, and executive functioning . Auditory comprehension difficulty in conversation may impact her communication and result in communication breakdowns. Recommend 1:[address] with the goal of providing therapeutic education and training in use of potentially beneficial cognitive-communication compensatory strategies and auditory comprehension strategies at the outpatient or home health setting if symptoms do not improve. 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 Subjective Pt sitting upright upon TOOL GRINDING MACHINE OPERATOR arrival. She was motivated Observations to participate in evaluation. Reported by Patient/Caregiver Other Symptoms Difficulty swallowing solids,Food gets stuck Comment Pt reported sensation of solids sticking in throat ( pointed to sternal notch). She reported she had an upper endoscopy done years ago, but could not recall results. She denied overt s/sx of aspiration. She reported history of GERD, which is not currently managed. Pt denied unintentional weight loss, PNA, or other respiratory issues. Current Diet Regular (IDDSI 7) Baseline Feeding Independent in self-feeding Method The IDDSI Framework Protocol: IDDSI.1 Objective Assessment Mental Status Alert,Responsive,Cooperative Oral Integrity WFL Dentition Within normal limits Lip Function Within normal limits Tongue Function Within normal limits Jaw Function Within normal limits Hard/Soft Palate Within normal limits Function Comment CRANIAL NERVE EXAM CN V (Trigeminal): intact b/l CN VII (Facial): intact b/l CN IX/X (Glossopharyngeal/Vagus): intact b/l CN XII (Hypoglossal): intact b/l Oral health is good. Natural dentition in place with upper bridge. Food and Liquid Trials Position During Upright (90 degrees) Assessment Liquids Trialed Thin (IDDSI 0) Solid Trials Purred (IDDSI 4),Soft & Bite-sized (IDDSI 6),Regular ( IDDSI 7) Administration Type Cup single sip,Cup consecutive sips,Straw,Self-feeding Oral Impairment Within normal limits Oral Phase Comments Pt observed across trials of thin liquids via tsp, cup, and straw, puree, soft/bite sized, and regular solids. Pt exhibited adequate bolus retrieval and oral containment. Pt exhibited timely bolus manipulation and complete oral clearance. No oral residue noted post- swallows. Pharyngeal Within functional limits Impairment Pharyngeal Phase Clinical signs/symptoms of possible pharyngeal Comments dysphagia include globus sensation reported by pt with certain solids (e.g., bread, rice), though this is not consistent across intake. No overt s/sx of aspiration observed. Globus sensation not reported by pt. Clear vocal quality post-swallows. [place] Swallow Yes Protocol Results The [place] Swallow Protocol is an evidence-based swallow screening protocol to determine aspiration risk. This tool has been validated across a number of different patient diagnoses and in a number of clinical settings. This is the only screening instrument that both identifies aspiration risk and, when passed, is able to recommend specific oral diets without the need for further instrumental dysphagia testing. Based upon research by Drs. Rl Ramos and Celeste Banegas, this is a reliable and validated swallow screening protocol. Cognitive Screen: PASS Results with 3oz water test: PASS Results with cracker: PASS The IDDSI Framework Protocol: IDDSI.1 Findings Swallowing Function Within functional limits Severity of Swallow Within functional limits Impairment Comment Pt presents with WNL oral phase of swallow and concern for possible pharyngeal phase dysphagia, though this may be related to pt?s report of unmanaged GERD given symptoms reported. Recommend pt follow up with PCP re: GERD management. If symptoms do not subside, modified barium swallow study (MBSS) may be indicated to thoroughly further assess pt?s swallow pathophysiology. No change from baseline diet is recommended. Pt expressed understanding of education. Impact on Safety and No limitations Functioning Recommendations Instrumental No Assessment Swallowing Treatment No Recommended Solids Regular (IDDSI 7) Recommended Liquids Thin (IDDSI 0) Medication As Tolerated Recommendations Referrals Recommended Primary Care Provider Referrals Education Patient/Caregiver Described results of evaluation,Patient expressed Education understanding of evaluation
--- NOTE | 2025-07-11 14:40 | P.DS_ITS ---
History of Present Illness History of Present Illness Chief complaint: Sent by PCP suspects stroke or TIA Narrative: Chief complaint: Slight balance service and paresthesia stroke-like symptoms History of present illness: 79-year-old female history of TIA approximately 2 years ago with negative workup here at [facility] noted tingling numbness and dizziness while riding in an elevator this afternoon came to the emergency room for evaluation. She had no loss of consciousness paresis visual field changes Workup emergency room negative for CT angio of the head cardiac arrhythmia hemogram and comprehensive metabolic profile unremarkable Hospital course: No further symptoms ataxia resolved MRI negative Image quality: Excellent. CSF spaces: Ventricles appear symmetric in size and shape. Basal cisterns are patent. No extra-axial fluid collections. Brain: No intracranial bleeds or mass effects. There is cerebral volume loss for age. There are periventricular and deep white matter chronic small vessel ischemic changes. Brainstem appears normal. Diffusion-weighted images show no acute infarct. No chronic ischemic insults. Normal intravascular flow voids are present. Skull and face: Calvarial bone marrow is normal in signal. Orbits are normal. Sinuses: Sinuses and mastoids are clear. IMPRESSION: 1. No acute process. No recent infarct. 2. Volume loss and small vessel ischemic disease. Echocardiogram normal - Left ventricular contractility is normal. Estimated ejection fraction is greater than 60% with no segmental wall motion abnormalities. No LVH. Normal diastolic function. - The right ventricular contractility is normal. - All cardiac chambers are of normal size. - No significant valvular abnormalities. - No obvious intracardiac shunts. - No obvious intracardiac masses nor thrombi. - No hemodynamically significant pericardial effusion. - Low right-sided filling pressures. Review of systems: No weight loss or weight gain No rigors fever or chill Chest pain palpitations shortness for breath No nausea vomiting diarrhea No urinary symptoms Physical exam: Very fit-appearing elderly female HEENT unremarkable Neck no JVD No labored respirations Abdomen nondistended Extremities no edema Neurologic exam: NIH score 0 Cranial nerves intact Alert and oriented x4 No motor deficits No sensory deficit Slight dysmetria left hand [id number] compared to right For objective laboratory and imaging please see the bottom of the note: Assessment and plan: Stroke like to a TIA like symptoms with negative workup thus far with negative CT and CT angio head * Placed in observation * Dual antiplatelet * High-intensity statin * Echocardiogram * MRI DVT prophylaxis: * Subcutaneous heparin Code status: * Full code blue Time based billing: * 55 minutes were involved evaluation of this patient including [id number] evaluation physical examination review of records review of objective laboratory and imaging findings discussion with emergency provider Discharge Providers Provider Date of admission: 07/10/25 17:59 Discharge Date: 07/11/25 Primary care physician: Remberto Burns MD Consults: 07/10/25 18:23 Consult to Discharge Planning Routine Comment: Consult to Occupational Therapy Evaluate & Treat Comment: Physician Instructions: Evaluate and treat Consult to Physical Therapy Evaluate & Treat Comment: Physician Instructions: Evaluate and Treat Consult to Speech Therapy Evaluate & Treat Comment: Physician Instructions: Evaluate and treat Discharge provider: Simón Healy MD Exam Vital Signs (past 8 hours): - 07/11/25 08:00 07/11/25 12:00 Temperature 97.1 F L 97.6 F Pulse Rate 51 L 67 Respiratory Rate 16 12 Blood Pressure 122/51 L 127/70 Pulse Oximetry 92 99 Oxygen Flow Rate 0 0 Oxygen Delivery Method Room Air Oxygen Flow Rate 0 Objective Labs 07/10/25 15:55 07/10/25 15:55 Labs: Laboratory Results - last 24 hr 07/10/25 07/10/25 07/10/25 15:55 15:56 18:35 WBC 7.2 RBC 4.28 Hgb 13.3 Hct 38.8 MCV 90.6 MCH 31.1 MCHC 34.4 RDW 14.1 Plt Count 225 Neut % (Auto) 67.8 Lymph % (Auto) 17.3 L [place] % (Auto) 10.3 Eos % (Auto) 3.9 Baso % (Auto) 0.7 Neut # (Auto) 4900 Lymph # (Auto) 1200 [place] # (Auto) 700 Eos # (Auto) 300 Baso # (Auto) 0 PT 11.3 INR 1.0 APTT 28 Sodium 139 Potassium 4.1 Chloride 106 Carbon Dioxide 25 BUN 18 H Creatinine 0.82 Estimated GFR > 60 BUN/Creatinine Ratio 22.0 Glucose 86 POC Whole Bld Glucose 88 Hemoglobin A1c 5.7 Calcium 9.1 Total Bilirubin 0.5 AST 31 ALT 24 Alkaline Phosphatase 71 Total Creatine Kinase 71 Troponin I < 0.012 Total Protein 7.3 Albumin 4.5 Globulin 2.8 Albumin/Globulin Ratio 1.6 Triglycerides 111 Cholesterol 188 LDL Cholesterol, Calc 122 H HDL Cholesterol 44 TSH 3.34 Urine Color Yellow Urine Appearance Clear Urine pH 6.0 Ur Specific [place] 1.010 Urine Protein Negative Urine Glucose (UA) Negative Urine Ketones Negative Urine Occult Blood Trace-intact Urine Nitrate Negative Urine Bilirubin Negative Urine Urobilinogen 0.2 Ur Leukocyte Esterase Negative Urine RBC None seen Urine WBC None seen Ur Squamous Epith Cells 0-1 /hpf Urine Bacteria Occasional (0-1) Ur Culture Indicated? Cult not indicated Vol Urine Centrifuged 10ml (spun) U Opiates 300ng/mL cut Negative Ur Oxycodone Screen Negative Urine Methadone Screen Negative Ur Barbiturates Screen Negative U Tricyclic Antidepress Negative Ur Phencyclidine Scrn Negative Ur Amphetamines Screen Negative U Methamphetamines Scrn Negative Ur MDMA Scrn (Ecstasy) Negative U Benzodiazepines Scrn Negative Urine Cocaine Screen Negative U Marijuana (THC) Screen Negative Urine Specific [place] Ethyl Alcohol < 10 Ur Creatinine SARS-CoV-2 (PCR) 07/10/25 07/10/25 18:35 18:50 WBC RBC Hgb Hct MCV MCH MCHC RDW Plt Count Neut % (Auto) Lymph % (Auto) [place] % (Auto) Eos % (Auto) Baso % (Auto) Neut # (Auto) Lymph # (Auto) [place] # (Auto) Eos # (Auto) Baso # (Auto) PT INR APTT Sodium Potassium Chloride Carbon Dioxide BUN Creatinine Estimated GFR BUN/Creatinine Ratio Glucose POC Whole Bld Glucose Hemoglobin A1c Calcium Total Bilirubin AST ALT Alkaline Phosphatase Total Creatine Kinase Troponin I Total Protein Albumin Globulin Albumin/Globulin Ratio Triglycerides Cholesterol LDL Cholesterol, Calc HDL Cholesterol TSH Urine Color Urine Appearance Urine pH Normal Ur Specific [place] Urine Protein Urine Glucose (UA) Urine Ketones Urine Occult Blood Urine Nitrate Urine Bilirubin Urine Urobilinogen Ur Leukocyte Esterase Urine RBC Urine WBC Ur Squamous Epith Cells Urine Bacteria Ur Culture Indicated? Vol Urine Centrifuged U Opiates 300ng/mL cut Ur Oxycodone Screen Urine Methadone Screen Ur Barbiturates Screen U Tricyclic Antidepress Ur Phencyclidine Scrn Ur Amphetamines Screen U Methamphetamines Scrn Ur MDMA Scrn (Ecstasy) U Benzodiazepines Scrn Urine Cocaine Screen U Marijuana (THC) Screen Urine Specific [place] Normal Ethyl Alcohol Ur Creatinine Normal SARS-CoV-2 (PCR) Negative PFSH Medical History Migraine headache with aura Hypothyroidism Hypertension Transient ischemic attack Vision disorder Eczema Stroke Fractures Foot pain Mumps Measles Chicken pox Skin cancer Glaucoma Surgical History Anesthesia H/O: hysterectomy Family History Father Colon cancer Prostate cancer Mother Lung cancer Diabetes mellitus Stroke Sister Stroke Social History household members: spouse Smoking Status: Never smoker alcohol intake: current Discharge Plan Discharge Plan Patient Disposition: Home Discharge orders & Medications Prescriptions: New atorvastatin 20 mg Tablet 80 mg PO BEDTIME Qty: 3 0RF clopidogrel 75 mg Tablet 75 mg PO DAILY Qty: 5 0RF atorvastatin 40 mg tablet 40 mg PO BEDTIME Qty: 30 3RF clopidogrel [Plavix] 75 mg tablet 75 mg PO DAILY Qty: 20 0RF aspirin 81 mg capsule 81 mg PO DAILY Qty: 100 0RF clopidogrel [Plavix] 75 mg tablet 75 mg PO DAILY Qty: 30 3RF Continued estrogens-methyltestosterone 0.625-1.25 mg tablet 1 tab PO DAILY Patient Comments: TAKE 1 TABLET BY MOUTH EVERY DAY brimonidine-timolol [Combigan] 0.2-0.5 % drops 1 drp EYE-BOTH BID quinine sulfate 324 mg capsule 324 mg PO ONCE PM PRN (Reason: cramps) Follow up/Referrals: Remberto Burns MD [Primary Care Provider, Cardiology] Visit Report/Discharge Packet Stand Alone Forms: Patient Portal/API, Stroke Signs & Symptoms Discharge Data Primary Care Provider: Remberto Burns Attending Provider: Simón Healy Admit Date/Time: 07/10/25 17:59
[2025-07-11 16:00] VITALS: BP 125/52; PULSE 60; RESP 16; TEMP 36.4; O2SAT 100
--- NOTE | 2025-07-11 17:37 | PC.NURSE ---
Discharge: Pt discharged to home via auto with spouse. Discharge packet reviewed with EVELYN Chu
--- NOTE | 2025-07-12 07:33 | PC.NURSE ---
Late Entry Discharge: Discharge without discharge packet. Fire Prevention Specialist went for a meal break. Instructed GREASER OPERATORCharles Martinez pt was not ready to leave as Dr. Loera had to complete her medication list. When I returned from meal break GREASER OPERATOR reported she had taken patient out and she had driven home. GREASER OPERATOR reports the patient told her the discharge had been signed and she was ready to go home. Had Dr. Loera complete discharge packet, discussed meds, I then phoned patient at home. Pt admits she told the GREASER OPERATOR she had signed something and requested to be taken to her car. Pt -> I signed so many things yesterday I thought I was done signing. Reviewed discharge packet with patient over the phone. Sxs of stroke, higher risk of stroke for the next week, drink fluids, she already doesn't smoke and rarely drinks. Reviewed medications. She is to take a low dose aspirin daily (81mg) and plavix daily. She has taken those today, starts 07/12/25 in the am. She is to take her cholesterol medication at night. It is fine with the physician here if she starts that medication tomorrow 07/12/25. Also reviewed potential for falls, reviewed fall sheet over phone for home and clothing. The discharge packet will be mailed to her. She verbalized understanding and will bead picker scripts tomorrow 07/12/25. Coordinator Sarah notified of event.
== END 2025-07-11 17:15 | disposition home or self-care (01) ==
LOC: ED 17:58 → AC 17:59
PROVIDERS: Admitting Provider Internal Medicine; Emergency Provider Emergency Medicine; Family Provider Registered Nurse; PCP Internal Medicine Cardiovascular Disease; Referring Provider Emergency Medicine; Visit Provider Internal Medicine
DX: R42 Dizziness and giddiness (principal); H40.9 Unspecified glaucoma; R29.703 NIHSS score 3; Z86.73 Personal history of transient ischemic attack (TIA), and cerebral infarction without residual deficits; Z82.3 Family history of stroke; Z79.890 Hormone replacement therapy; Z86.69 Personal history of other diseases of the nervous system and sense organs
CPT/HCPCS: 36415; 70450; 70496; 70498; 70551; 80053; 80061; 80305; 80320; 81001; 82550; 82962; 83036; 84443; 84484; 85025; 85610; 85730; 87635; 92523; 92610; 93005; 93306; 96372; 96374; 97116; 97162; 97166; 97530; 99285; G0378; J1644; J2060; J7050; Q9967